=== PATIENT | female | born 1935 | race Caucasian/White ===

== ENCOUNTER 2019-09-18 18:01 | Inpatient (IN) | payer MEDICARE, MEDICAID ==
[~2019-09-18] VITALS: Ht 162.6 cm; Wt 107.1 kg
[~2019-09-18 18:01] MED LIST: ACET1TAB12 PO; ASCO500C15 PO; ASPI-1009 PO; CARV-50 PO; CHOL100046 PO; CYCL1DRO EACHEYE; DEXT15DR7 EACHEYE; DIPH25CA83 PO; FERR134T2 PO; FURO-149 PO; INSU100V12 SQ; MULT1TAB74 PO; PRED5TAB PO; VALS160T2 PO; VITA-129 PO
[2019-09-18 18:23] LABS: BASOPHILS % (AUTO) 0.3 % (0-1); EOSINOPHILS % (AUTO) 0.2 % (0-6); HEMATOCRIT 31.3 % (35.0-45.0); HEMOGLOBIN 10.3 g/dl (12.0-16.0); LYMPHOCYTES # (AUTO) 0.5 X10'3 (1.1-4.8); LYMPHOCYTES % (AUTO) 8.6 % (21-51); MEAN CORPUSCULAR HEMOGLOBIN 31.7 PG (27.0-31.0); MEAN CORPUSCULAR HGB CONC 32.8 g/dL (33.0-36.5); MEAN CORPUSCULAR VOLUME 96.8 FL (78-98); MONOCYTES # (AUTO) 0.2 X10'3 (0-0.9); MONOCYTES % (AUTO) 4.1 % (2-12); NEUTROPHILS # (AUTO) 4.9 X10'3 (1.8-7.7); NEUTROPHILS % (AUTO) 86.8 % (42-75); PLATELET COUNT 88 X10'3 (140-440); RED BLOOD COUNT 3.23 X10'6 (4.20-5.60); RED CELL DISTRIBUTION WIDTH 16.8 % (11.5-14.5); WHITE BLOOD COUNT 5.7 X10'3 (4.5-11.0)
[2019-09-18 18:34] LABS: PARTIAL THROMBOPLASTIN TIME 38 SECONDS (22-32)
[2019-09-18 18:37] LABS: ALANINE AMINOTRANSFERASE 25 U/L (12-78); ALBUMIN/GLOBULIN RATIO 0.8 (1.1-1.5); ALKALINE PHOSPHATASE 80 IU/L (46-116); ANION GAP 5 (8-16); ASPARTATE AMINO TRANSFERASE 42 U/L (10-37); BILIRUBIN,TOTAL 0.7 MG/DL (0.1-1.0); BLOOD UREA NITROGEN 48 MG/DL (7-18); BUN/CREATININE RATIO 24.4 (6.6-38.0); CALCIUM 9.5 MG/DL (8.5-10.1); CHLORIDE 95 MMOL/L (99-107); CREATININE 1.97 MG/DL (0.40-0.90); GLUCOSE 211 MG/DL (70-104); POTASSIUM 5.7 MMOL/L (3.5-5.1); SODIUM 133 MMOL/L (135-145); TOTAL CARBON DIOXIDE 32.7 MMOL/L (24-32); TOTAL PROTEIN 6.6 G/DL (6.4-8.2); eGFR 24 ML/MIN
[2019-09-18 18:51] LABS: PLATELET ESTIMATE DECREASED
[2019-09-18 18:52] LABS: LARGE PLATELETS FEW
[2019-09-18] MEDS ORDERED: calcium gluconate inj. 2 GM in normal saline 100ml IV soln 100 ML IV ONE (19:10)
[2019-09-18] MEDS ORDERED: sodium bicarbonate (0.9mEq/ml) 44.6 mEq/50ml syringe IV ONE (19:10)
[2019-09-18] MEDS ORDERED: insulin regular, human 10 units/0.1 ml syringe IV ONE (19:10)
[2019-09-18] MEDS ORDERED: dextrose 50%-water 50ml dispensing syringe IV ONE (19:10)
[2019-09-18 19:15] LABS: ABG BASE EXCESS 1.5 mmol/L (-2.0-3.0); ABG HCO3 27.5 mmol/L (22.0-26.0); ABG OXYGEN SATURATION 99.4 % (95-98); ABG PCO2 (T) 49.6 mmHg (35.0-45.0); ABG PH (T) 7.361 (7.350-7.450); ABG PO2 (T) 350.5 mmHg (83-108); ALLEN'S TEST Positive; FCOHb 0.1 % (0.5-1.5); FMetHb 0.1 % (0.3-1.12); FO2Hb 99.2 % (94-100); MINUTE VOLUME 7 L/min; PEEP 5 cm H2O; RESPIRATORY RATE 16 b/min; RESPIRATORY RATE (OBSERVED) 16 b/min; TIDAL VOLUME 400 mL; TOTAL HEMOGLOBIN 10.4 G/dl (12.0-16.0)
[2019-09-18] MEDS ORDERED: CefTRIAXone 2gm/D5W 50ml 50 ML IV ONE (19:40)
[2019-09-18] MEDS ORDERED: CISatracurium besylate inj. 200 MG in normal saline 250ml IV soln 180 ML IV PRN (20:12)
[2019-09-18] MEDS ORDERED: magnesium Cl slow-release 64mg tablet PO PRN (20:15)
[2019-09-18] MEDS ORDERED: magnesium 4gm in 100ml NS 100 ML IV PRN (20:15)
[2019-09-18] MEDS ORDERED: sodium phosphate inj. 30 MMOL in dextrose 5%-water 250 ML IV PRN (20:15)
[2019-09-18] MEDS ORDERED: potassium Cl 20 mEq SR tablet PO PRN ×2 (20:15)
[2019-09-18] MEDS ORDERED: CISatracurium **Bolus** 2 mg/ml inj IV PRN (20:15)
[2019-09-18] MEDS ORDERED: Neutra Phos packet PO PRN (20:15)
[2019-09-18] MEDS ORDERED: potassium CL 10mEq/100ml bag 100 ML IV PRN (20:15)
[2019-09-18] MEDS ORDERED: sodium phosphate inj. 15 MMOL in dextrose 5%-water 150 ML IV PRN (20:15)
[2019-09-18] MEDS ORDERED: magnesium 2GM in 50ml NS 50 ML IV PRN (20:15)
[2019-09-18] MEDS ORDERED: morphine 4 MG/ML inj SYRINge IV PRN (20:20)
[2019-09-18] MEDS ORDERED: acetaminophen 650mg rectal suppository RC PRN (20:20)
[2019-09-18] MEDS ORDERED: morphine 2 MG/ML inj. syringe IV PRN (20:20)
[2019-09-18] MEDS ORDERED: acetaminophen 325mg tablet PO PRN ×2 (20:20)
[2019-09-18] MEDS ORDERED: VANCOmycin 1250MG/NS 250ml Bag 250 ML IV SCH (20:30)
[2019-09-18 21:12] LABS: CLARITY,URINE CLOUDY (Clear); COLOR,URINE YELLOW (Yellow); GLUCOSE, URINE 250 mg/dl (Neg); KETONES,URINE NEGATIVE (Neg); LEUKOCYTE ESTERASE ,URINE SMALL (Neg); NITRITES, URINE NEGATIVE (Neg); OCCULT BLOOD,URINE LARGE (Neg); PROTEIN,URINE >=300 mg/dl (Neg); UROBILINOGEN,URINE 0.2 E.U/dL (0.2-1.0)
[2019-09-18 21:17] LABS: UA COLLECTION TYPE FOLEY CATH
[2019-09-18 21:19] LABS: RBC,URINE TNTC /HPF (0-2); SQUAMOUS EPITHELIAL CELL,UR MANY /LPF (FEW); WBC,URINE 0-4 /HPF (0-4)
[2019-09-18 21:20] LABS: BACTERIA,URINE FEW /HPF (Neg)
[2019-09-18 21:30] VITALS: BP_SYST 141; BP_SYST 147; BP_DIAS 116; BP_DIAS 91
[2019-09-18 22:00] VITALS: BP 136/91
[2019-09-18 22:15] LABS: ABG BASE EXCESS 6.4 mmol/L (-2.0-3.0); ABG HCO3 32.9 mmol/L (22.0-26.0); ABG OXYGEN SATURATION 99.3 % (95-98); ABG PCO2 (T) 47.7 mmHg (35.0-45.0); ABG PH (T) 7.438 (7.350-7.450); ABG PO2 (T) 185.2 mmHg (83-108); ALLEN'S TEST Positive; FCOHb 0.3 % (0.5-1.5); FMetHb 0.2 % (0.3-1.12); FO2Hb 98.8 % (94-100); MINUTE VOLUME 6 L/min; PATIENT TEMPERATURE 32.7; PEEP 5 cm H2O; RESPIRATORY RATE 16 b/min; RESPIRATORY RATE (OBSERVED) 17 b/min; TIDAL VOLUME 400 mL
[2019-09-18 22:15] LABS: OXYGEN SATURATION (MIXED VEN) 39.2 % (60-80); PO2 MIXED VENOUS (TEMP COR) 18.6 mmHg (35-46)
[2019-09-18 22:30] VITALS: BP 132/79
[2019-09-18] MEDS: FENTANYL-0.9 % NACL/PF 100 ML IV PRN (22:33)
[2019-09-18 23:00] VITALS: BP 115/67
--- NOTE | 2019-09-18 23:05 | NUR ---
I have received report and assumed car of pt from ER, pt placed on monitor, pt has augusto ulcers to the rt lower leg, abrasions to the chest, open areas under pannus, folds on her sides and under both breasts, photos obtained wound care consult made. pt does not arouse to verbal stimuli, she does flutter her eyes and startle jerk with deep painful stimuli, ABG and mixed augusto obtained, call placed to Deion Malone NP regarding low mixed augusto, new orders obtained to start low dose dobutamine and to recheck the mixed augusto with the morning abg. 0130 spoke to Deion Malone NP regarding pt's increase in rhythmic jerking and stiff upper arms, along with biting of the ett, pts eyes do flutter during these episodes, new orders received for the increase of versed and the use of versed bolus for seizure control.
[2019-09-18] MEDS: piperacillin/tazo 3.375gm/50ml 50 ML IV SCH (23:10)
[2019-09-18] MEDS: DOBUTamine-DoBUTrex 500mg/D5W 250 ML IV SCH (23:10)
[2019-09-18 23:30] VITALS: BP 119/65
[2019-09-19] VITALS (37 sets, daily range): BP systolic 102–134; BP diastolic 54–79
[2019-09-19] MEDS: midazolam 100mg in NS 100ml 100 ML IV PRN ×3 (01:45→22:42)
[2019-09-19 02:52] LABS: BASOPHILS % (AUTO) 0.1 % (0-1); EOSINOPHILS % (AUTO) 0 % (0-6); HEMATOCRIT 28.7 % (35.0-45.0); HEMOGLOBIN 9.5 g/dl (12.0-16.0); LYMPHOCYTES # (AUTO) 0.3 X10'3 (1.1-4.8); MEAN CORPUSCULAR HEMOGLOBIN 31.5 PG (27.0-31.0); MEAN CORPUSCULAR HGB CONC 33.1 g/dL (33.0-36.5); MEAN CORPUSCULAR VOLUME 95.2 FL (78-98); MEAN PLATELET VOLUME 8.7 FL (7.4-10.4); MONOCYTES # (AUTO) 0.8 X10'3 (0-0.9); MONOCYTES % (AUTO) 8.5 % (2-12); NEUTROPHILS # (AUTO) 7.9 X10'3 (1.8-7.7); NEUTROPHILS % (AUTO) 88.4 % (42-75); PLATELET COUNT 89 X10'3 (140-440); RED BLOOD COUNT 3.01 X10'6 (4.20-5.60); RED CELL DISTRIBUTION WIDTH 16.9 % (11.5-14.5)
[2019-09-19 03:00] LABS: PARTIAL THROMBOPLASTIN TIME 36 SECONDS (22-32)
[2019-09-19 03:01] LABS: ABG BASE EXCESS 7.3 mmol/L (-2.0-3.0); ABG HCO3 30.3 mmol/L (22.0-26.0); ABG OXYGEN SATURATION 99.6 % (95-98); ABG PCO2 (T) 30.1 mmHg (35.0-45.0); ABG PH (T) 7.606 (7.350-7.450); ABG PO2 (T) 264.8 mmHg (83-108); ALLEN'S TEST Positive; FCOHb 0.3 % (0.5-1.5); FMetHb 0.1 % (0.3-1.12); FO2Hb 99.2 % (94-100); MINUTE VOLUME 7 L/min; PATIENT TEMPERATURE 32.6; PEEP 5 cm H2O; RESPIRATORY RATE 16 b/min; RESPIRATORY RATE (OBSERVED) 16 b/min; TIDAL VOLUME 400 mL; TOTAL HEMOGLOBIN 10.4 G/dl (12.0-16.0)
[2019-09-19 03:05] LABS: OXYGEN SATURATION (MIXED VEN) 68.7 % (60-80); PO2 MIXED VENOUS (TEMP COR) 25.2 mmHg (35-46)
--- NOTE | 2019-09-19 03:05 | NUR ---
spoke to Senthil regarding pt having almost no urine output, new orders received for 40 mg IV lasix, pt has had family at bedside most of the evening, questions answered,
[2019-09-19 03:21] LABS: ALANINE AMINOTRANSFERASE 25 U/L (12-78); ALBUMIN 2.5 G/DL (3.4-5.0); ALBUMIN/GLOBULIN RATIO 0.8 (1.1-1.5); ALKALINE PHOSPHATASE 64 IU/L (46-116); ANION GAP 4 (8-16); ASPARTATE AMINO TRANSFERASE 43 U/L (10-37); BILIRUBIN,TOTAL 0.6 MG/DL (0.1-1.0); BLOOD UREA NITROGEN 49 MG/DL (7-18); BUN/CREATININE RATIO 25.7 (6.6-38.0); CALCIUM 9.4 MG/DL (8.5-10.1); CHLORIDE 99 MMOL/L (99-107); CKMB RELATIVE INDEX 7.3 RATIO (0-2.5); CREATINE KINASE 297 U/L (26-192); CREATININE 1.91 MG/DL (0.40-0.90); GLUCOSE 95 MG/DL (70-104); MAGNESIUM 1.9 MG/DL (1.5-2.4); PHOSPHORUS 3.2 MG/DL (2.3-4.5); SODIUM 138 MMOL/L (135-145); TOTAL CARBON DIOXIDE 35.4 MMOL/L (24-32); TOTAL PROTEIN 5.5 G/DL (6.4-8.2); TROPONIN I 0.09 NG/ML (0.0-0.05); eGFR 25 ML/MIN
[2019-09-19] MEDS ORDERED: furosemide 40mg/4ml inj IV ONE (04:00)
[2019-09-19] MEDS ORDERED: furosemide 40mg/4ml inj ONE (04:01)
[2019-09-19 04:08] LABS: ANISOCYTOSIS 1+; LARGE PLATELETS FEW; PLATELET ESTIMATE DECREASED; POLYCHROMASIA 1+; TOTAL CELLS COUNTED 100; TOXIC GRANULATION 1+
[2019-09-19 04:09] LABS: POIKILOCYTOSIS FEW
--- NOTE | 2019-09-19 06:25 | NUR ---
Report given to receiving RN plan of care reviewed
[2019-09-19] MEDS ORDERED: mineral oil/petrolatum ophthal oint EACHEYE PRN (07:10)
[2019-09-19] MEDS: pantoprazole 40 MG vial IV SCH (07:36)
[2019-09-19] MEDS: K, MAG and/or Phos replacement - Verify level? MC SCH (08:00)
[2019-09-19] MEDS: piperacillin/tazo 3.375gm/50ml 50 ML IV SCH ×2 (08:06→16:03)
[2019-09-19 08:20] LABS: ALBUMIN 2.5 G/DL (3.4-5.0); ANION GAP 6 (8-16); BLOOD UREA NITROGEN 49 MG/DL (7-18); BUN/CREATININE RATIO 26.1 (6.6-38.0); CALCIUM 9.4 MG/DL (8.5-10.1); CHLORIDE 99 MMOL/L (99-107); CREATININE 1.88 MG/DL (0.40-0.90); GLUCOSE 86 MG/DL (70-104); MAGNESIUM 1.7 MG/DL (1.5-2.4); POTASSIUM 3.5 MMOL/L (3.5-5.1); SODIUM 139 MMOL/L (135-145); TOTAL CARBON DIOXIDE 34.1 MMOL/L (24-32); eGFR 25 ML/MIN
[2019-09-19 09:55] LABS: PO2 MIXED VENOUS (TEMP COR) 28.6 mmHg (35-46)
[2019-09-19 10:10] LABS: ABG BASE EXCESS 5.8 mmol/L (-2.0-3.0); ABG HCO3 29.2 mmol/L (22.0-26.0); ABG OXYGEN SATURATION 91.3 % (95-98); ABG PCO2 (T) 37.9 mmHg (35.0-45.0); ABG PH (T) 7.505 (7.350-7.450); ABG PO2 (T) 59.9 mmHg (83-108); ALLEN'S TEST Positive; FCOHb 0.2 % (0.5-1.5); FMetHb 0.1 % (0.3-1.12); PEEP 5 cm H2O; RESPIRATORY RATE 12 b/min; TIDAL VOLUME 400 mL; TOTAL HEMOGLOBIN 10.5 G/dl (12.0-16.0)
[2019-09-19] MEDS: FENTANYL-0.9 % NACL/PF 100 ML IV PRN ×2 (10:50→22:43)
[2019-09-19] MEDS ORDERED: dextrose 50%-water 50ml dispensing syringe IV PRN (12:35)
[2019-09-19] MEDS ORDERED: dextrose ORAL solution 15 GM/59 ML bottle PO PRN ×2 (12:35)
[2019-09-19] MEDS ORDERED: insulin Lispro (HumaLOG) vial - multi-dose SQ SCH (12:35)
[2019-09-19] MEDS ORDERED: MESSAGE TO PHARMACY PO ONE (12:35)
[2019-09-19] MEDS ORDERED: glucagon, human recombinant 1mg kit SUBCUT PRN (12:35)
[2019-09-19] MEDS ORDERED: dextrose 50%-water 50ml dispensing syringe IV ONE (12:42)
[2019-09-19] MEDS: dextrose 50%-water 50ml dispensing syringe IV PRN (12:43)
[2019-09-19] MEDS: mineral oil/petrolatum ophthal oint EACHEYE SCH ×3 (12:57→20:37)
--- NOTE | 2019-09-19 13:00 | NUR ---
Wound care called, spoke to RN, asked to come and assess and recommend treatment for multiple affected areas.
[2019-09-19 13:14] LABS: ALBUMIN 2.3 G/DL (3.4-5.0); ANION GAP 6 (8-16); BLOOD UREA NITROGEN 47 MG/DL (7-18); BUN/CREATININE RATIO 25.5 (6.6-38.0); CALCIUM 9.5 MG/DL (8.5-10.1); CHLORIDE 99 MMOL/L (99-107); CKMB RELATIVE INDEX 8.5 RATIO (0-2.5); CREATINE KINASE 215 U/L (26-192); CREATININE 1.84 MG/DL (0.40-0.90); GLUCOSE 68 MG/DL (70-104); MAGNESIUM 1.8 MG/DL (1.5-2.4); POTASSIUM 3.4 MMOL/L (3.5-5.1); SODIUM 139 MMOL/L (135-145); TOTAL CARBON DIOXIDE 34.3 MMOL/L (24-32); TROPONIN I 0.11 NG/ML (0.0-0.05); eGFR 26 ML/MIN
[2019-09-19] MEDS: potassium CL 10mEq/100ml bag 100 ML IV PRN ×2 (13:29→14:22)
--- NOTE | 2019-09-19 14:56 | NUR ---
Initial: Pt admit after cardiac arrest requiring intubation. No TF at this time as pt currently on hypothermic protocol. TF recommendations below using patient's IBW as current wt isn't scaled, however a scaled weight would be appropriate to best determine the patient's estimated nutrient needs. Pt with hx T2DM, current A1c is 7.4. Pt would benefit from DM education following extubation once stable. Pt with low Deuce of 10, skin intact per physical assessment. Will continue to follow. Recommendations: 1) If prolonged intubation and to receive TF, recommend continuous TF using Vital High Protein with goal rate of 55 mL/hr 2) If above, Prealbumin q M/TH; daily weights 3) Scaled weight for accuracy 4) PO diet advancement to heart healthy CHO controlled after extubation as medically indicated Addendum: 09/19/19 at [address] Amended: Links added.
--- NOTE | 2019-09-19 14:59 | NUR ---
Patient in room CICU 2010. I have received report from BJ material handler 2nd shift nurse and had the opportunity to ask questions and assume patient care.
[2019-09-19 15:30] LABS: OXYGEN SATURATION (MIXED VEN) 65.9 % (60-80); PO2 MIXED VENOUS (TEMP COR) 33.9 mmHg (35-46)
[2019-09-19] MEDS: potassium Cl 20mEq/100mL bag 100 ML IV PRN (16:03)
[2019-09-19 17:15] LABS: ABG BASE EXCESS 7.4 mmol/L (-2.0-3.0); ABG HCO3 30.9 mmol/L (22.0-26.0); ABG PCO2 (T) 32.5 mmHg (35.0-45.0); ABG PO2 (T) 59.4 mmHg (83-108); FCOHb 0.1 % (0.5-1.5); FMetHb 0.1 % (0.3-1.12); FO2Hb 95.8 % (94-100); MINUTE VOLUME 4 L/min; PATIENT TEMPERATURE 32.7; PEEP 5 cm H2O; RESPIRATORY RATE 12 b/min; RESPIRATORY RATE (OBSERVED) 12 b/min; TIDAL VOLUME 350 mL; TOTAL HEMOGLOBIN 10.1 G/dl (12.0-16.0)
[2019-09-19] MEDS ORDERED: normal saline 1000ml 1,000 ML IV SCH (17:30)
--- NOTE | 2019-09-19 17:36 | NUR ---
dr garvin updated on abg results, new orders for vent rate of 8, updated on urine output dropping over last couple of hours, and low blood sugar x1.
--- NOTE | 2019-09-19 18:31 | NUR ---
Problems reprioritized. Patient report given, questions answered & plan of care reviewed with Jose Miguel operation shift supervisor RN.
--- NOTE | 2019-09-19 18:35 | NUR ---
Patient in room CICU 2010. I have received report from Nataliya mondragon and had the opportunity to ask questions and assume patient care.
[2019-09-19] MEDS: lactobacillus rhamnosus 10,000 MMU CELLS/CAPSULE PO SCH (20:37)
[2019-09-19] MEDS: insulin glargine (Lantus) pen - multi-dose SQ SCH (20:37)
[2019-09-19 20:50] LABS: ALANINE AMINOTRANSFERASE 27 U/L (12-78); ALBUMIN 2.2 G/DL (3.4-5.0); ALBUMIN/GLOBULIN RATIO 0.8 (1.1-1.5); ALKALINE PHOSPHATASE 56 IU/L (46-116); ANION GAP 0 (8-16); ASPARTATE AMINO TRANSFERASE 45 U/L (10-37); BILIRUBIN,TOTAL 0.8 MG/DL (0.1-1.0); BLOOD UREA NITROGEN 49 MG/DL (7-18); CALCIUM 9.2 MG/DL (8.5-10.1); CHLORIDE 99 MMOL/L (99-107); CKMB RELATIVE INDEX 9.2 RATIO (0-2.5); CREATINE KINASE 169 U/L (26-192); CREATININE 1.96 MG/DL (0.40-0.90); GLUCOSE 85 MG/DL (70-104); MAGNESIUM 1.7 MG/DL (1.5-2.4); PHOSPHORUS 3.2 MG/DL (2.3-4.5); POTASSIUM 4.3 MMOL/L (3.5-5.1); SODIUM 137 MMOL/L (135-145); TOTAL CARBON DIOXIDE 37.8 MMOL/L (24-32); TOTAL PROTEIN 4.9 G/DL (6.4-8.2); TROPONIN I 0.13 NG/ML (0.0-0.05); eGFR 24 ML/MIN
[2019-09-19 20:58] LABS: BASOPHILS % (AUTO) 0.1 % (0-1); EOSINOPHILS % (AUTO) 0.1 % (0-6); HEMATOCRIT 27.9 % (35.0-45.0); HEMOGLOBIN 9.4 g/dl (12.0-16.0); LYMPHOCYTES # (AUTO) 0.3 X10'3 (1.1-4.8); LYMPHOCYTES % (AUTO) 3.9 % (21-51); MEAN CORPUSCULAR HEMOGLOBIN 31.9 PG (27.0-31.0); MEAN CORPUSCULAR HGB CONC 33.7 g/dL (33.0-36.5); MEAN CORPUSCULAR VOLUME 94.6 FL (78-98); MEAN PLATELET VOLUME 9.7 FL (7.4-10.4); MONOCYTES # (AUTO) 0.4 X10'3 (0-0.9); MONOCYTES % (AUTO) 5.2 % (2-12); NEUTROPHILS # (AUTO) 6.8 X10'3 (1.8-7.7); NEUTROPHILS % (AUTO) 90.7 % (42-75); PLATELET COUNT 85 X10'3 (140-440); RED BLOOD COUNT 2.95 X10'6 (4.20-5.60); RED CELL DISTRIBUTION WIDTH 16.3 % (11.5-14.5); WHITE BLOOD COUNT 7.5 X10'3 (4.5-11.0)
--- NOTE | 2019-09-19 21:00 | NUR ---
pt bathed. Artic sun in place. unable to obtain an accurate weight at this time
[2019-09-19 21:25] LABS: ABG HCO3 32.5 mmol/L (22.0-26.0); ALLEN'S TEST Positive; MINUTE VOLUME 3 L/min; PATIENT TEMPERATURE 32.9; PEEP 5 cm H2O; RESPIRATORY RATE 8 b/min; RESPIRATORY RATE (OBSERVED) 8 b/min; TIDAL VOLUME 350 mL
[2019-09-19 21:26] LABS: ABG BASE EXCESS 6.9 mmol/L (-2.0-3.0); ABG OXYGEN SATURATION 95.1 % (95-98); FCOHb 0.3 % (0.5-1.5); FMetHb 0.2 % (0.3-1.12); FO2Hb 94.6 % (94-100); TOTAL HEMOGLOBIN 10.6 G/dl (12.0-16.0)
--- NOTE | 2019-09-19 22:24 | NUR ---
rewarming initiated per protocol. vital signs stable at this time. will continue to monitor
[2019-09-19] MEDS: VANCOmycin 1250MG/NS 250ml Bag 250 ML IV SCH (23:17)
[2019-09-20] VITALS (24 sets, daily range): BP systolic 91–136; BP diastolic 45–71
[2019-09-20] MEDS: mineral oil/petrolatum ophthal oint EACHEYE SCH ×7 (00:51→23:56)
[2019-09-20] MEDS: piperacillin/tazo 3.375gm/50ml 50 ML IV SCH ×4 (00:52→23:56)
[2019-09-20 02:37] LABS: BASOPHILS % (AUTO) 0.1 % (0-1); EOSINOPHILS % (AUTO) 0 % (0-6); HEMATOCRIT 28.7 % (35.0-45.0); HEMOGLOBIN 9.7 g/dl (12.0-16.0); LYMPHOCYTES # (AUTO) 0.3 X10'3 (1.1-4.8); LYMPHOCYTES % (AUTO) 4.4 % (21-51); MEAN CORPUSCULAR HEMOGLOBIN 31.9 PG (27.0-31.0); MEAN CORPUSCULAR HGB CONC 33.8 g/dL (33.0-36.5); MEAN CORPUSCULAR VOLUME 94.5 FL (78-98); MEAN PLATELET VOLUME 9.4 FL (7.4-10.4); MONOCYTES # (AUTO) 0.4 X10'3 (0-0.9); MONOCYTES % (AUTO) 5.4 % (2-12); NEUTROPHILS % (AUTO) 90.1 % (42-75); PLATELET COUNT 85 X10'3 (140-440); RED BLOOD COUNT 3.03 X10'6 (4.20-5.60); RED CELL DISTRIBUTION WIDTH 16.5 % (11.5-14.5); WHITE BLOOD COUNT 7.8 X10'3 (4.5-11.0)
[2019-09-20 02:47] LABS: PARTIAL THROMBOPLASTIN TIME 39 SECONDS (22-32)
[2019-09-20 03:00] LABS: ABG BASE EXCESS 6.1 mmol/L (-2.0-3.0); ABG HCO3 32.1 mmol/L (22.0-26.0); ABG OXYGEN SATURATION 94.9 % (95-98); ABG PCO2 (T) 46.7 mmHg (35.0-45.0); ABG PH (T) 7.442 (7.350-7.450); ABG PO2 (T) 63.6 mmHg (83-108); ALLEN'S TEST Positive; FCOHb 0.7 % (0.5-1.5); FMetHb 0.2 % (0.3-1.12); MINUTE VOLUME 3 L/min; PATIENT TEMPERATURE 33.8; PEEP 5 cm H2O; RESPIRATORY RATE 8 b/min; RESPIRATORY RATE (OBSERVED) 8 b/min; TIDAL VOLUME 350 mL; TOTAL HEMOGLOBIN 10.7 G/dl (12.0-16.0)
[2019-09-20 03:10] LABS: ALANINE AMINOTRANSFERASE 24 U/L (12-78); ALBUMIN 2.1 G/DL (3.4-5.0); ALBUMIN/GLOBULIN RATIO 0.8 (1.1-1.5); ALKALINE PHOSPHATASE 53 IU/L (46-116); ANION GAP 3 (8-16); ASPARTATE AMINO TRANSFERASE 44 U/L (10-37); BILIRUBIN,TOTAL 0.7 MG/DL (0.1-1.0); BLOOD UREA NITROGEN 51 MG/DL (7-18); BUN/CREATININE RATIO 25.1 (6.6-38.0); CHLORIDE 100 MMOL/L (99-107); CKMB RELATIVE INDEX 9.4 RATIO (0-2.5); CREATINE KINASE 138 U/L (26-192); CREATININE 2.03 MG/DL (0.40-0.90); GLUCOSE 93 MG/DL (70-104); MAGNESIUM 1.7 MG/DL (1.5-2.4); PHOSPHORUS 3.6 MG/DL (2.3-4.5); POTASSIUM 4.6 MMOL/L (3.5-5.1); SODIUM 137 MMOL/L (135-145); TOTAL PROTEIN 4.8 G/DL (6.4-8.2); TROPONIN I 0.14 NG/ML (0.0-0.05); eGFR 23 ML/MIN
[2019-09-20 04:08] LABS: ANISOCYTOSIS 1+; PLATELET ESTIMATE DECREASED; POIKILOCYTOSIS 1+; TOTAL CELLS COUNTED 100
[2019-09-20 04:09] LABS: TOXIC GRANULATION 2+
[2019-09-20 04:10] LABS: BURR CELLS 1+; POLYCHROMASIA 1+
--- NOTE | 2019-09-20 06:50 | NUR ---
Patient in room CICU 2010. I have received report from LA Miller and had the opportunity to ask questions and assume patient care.
[2019-09-20] MEDS: DOBUTamine-DoBUTrex 500mg/D5W 250 ML IV SCH (07:17)
[2019-09-20] MEDS: lactobacillus rhamnosus 10,000 MMU CELLS/CAPSULE PO SCH ×2 (07:18→19:27)
[2019-09-20] MEDS: pantoprazole 40 MG vial IV SCH (07:18)
[2019-09-20] MEDS: FENTANYL-0.9 % NACL/PF 100 ML IV PRN (07:18)
[2019-09-20] MEDS: NORepinephrine 8mg/ 250ml NS 250 ML IV SCH (07:28)
[2019-09-20] MEDS: K, MAG and/or Phos replacement - Verify level? MC SCH (08:00)
[2019-09-20 08:26] LABS: ALBUMIN 2.4 G/DL (3.4-5.0); ANION GAP 4 (8-16); BLOOD UREA NITROGEN 52 MG/DL (7-18); BUN/CREATININE RATIO 24.9 (6.6-38.0); CALCIUM 8.9 MG/DL (8.5-10.1); CHLORIDE 98 MMOL/L (99-107); CREATININE 2.09 MG/DL (0.40-0.90); GLUCOSE 110 MG/DL (70-104); MAGNESIUM 1.8 MG/DL (1.5-2.4); POTASSIUM 4.8 MMOL/L (3.5-5.1); SODIUM 137 MMOL/L (135-145); TOTAL CARBON DIOXIDE 34.7 MMOL/L (24-32); eGFR 23 ML/MIN
[2019-09-20 08:35] LABS: ABG BASE EXCESS 5.7 mmol/L (-2.0-3.0); ABG HCO3 32.9 mmol/L (22.0-26.0); ABG OXYGEN SATURATION 92.6 % (95-98); ABG PCO2 (T) 58.4 mmHg (35.0-45.0); ABG PH (T) 7.362 (7.350-7.450); ABG PO2 (T) 64.9 mmHg (83-108); ALLEN'S TEST Positive; FCOHb 0.8 % (0.5-1.5); FMetHb 0.3 % (0.3-1.12); FO2Hb 91.6 % (94-100); PATIENT TEMPERATURE 35.8; PEEP 5 cm H2O; RESPIRATORY RATE 8 b/min; TOTAL HEMOGLOBIN 11.4 G/dl (12.0-16.0)
[2019-09-20] MEDS: ipratropium/albuterol 3ml nebule NEB PRN ×3 (09:49→23:16)
[2019-09-20] MEDS: normal saline 1000ml 1,000 ML IV SCH ×2 (12:02→21:05)
[2019-09-20 12:36] LABS: CKMB RELATIVE INDEX 7.7 RATIO (0-2.5); TROPONIN I 0.13 NG/ML (0.0-0.05)
[2019-09-20 13:40] LABS: ABG BASE EXCESS 5.2 mmol/L (-2.0-3.0); ABG HCO3 31.4 mmol/L (22.0-26.0); ABG OXYGEN SATURATION 93.7 % (95-98); ABG PCO2 (T) 53.2 mmHg (35.0-45.0); ABG PH (T) 7.388 (7.350-7.450); ABG PO2 (T) 69.6 mmHg (83-108); ALLEN'S TEST Positive; FCOHb 0.7 % (0.5-1.5); FMetHb 0.2 % (0.3-1.12); FO2Hb 92.9 % (94-100); PATIENT TEMPERATURE 36.8; PEEP 5 cm H2O; RESPIRATORY RATE 10 b/min; RESPIRATORY RATE (OBSERVED) 10 b/min; TIDAL VOLUME 350 mL; TOTAL HEMOGLOBIN 11.5 G/dl (12.0-16.0)
[2019-09-20 14:31] LABS: ALBUMIN 2.4 G/DL (3.4-5.0); ANION GAP 3 (8-16); BLOOD UREA NITROGEN 51 MG/DL (7-18); BUN/CREATININE RATIO 22.2 (6.6-38.0); CALCIUM 8.8 MG/DL (8.5-10.1); CHLORIDE 98 MMOL/L (99-107); GLUCOSE 126 MG/DL (70-104); MAGNESIUM 1.8 MG/DL (1.5-2.4); POTASSIUM 4.9 MMOL/L (3.5-5.1); SODIUM 137 MMOL/L (135-145); TOTAL CARBON DIOXIDE 35.8 MMOL/L (24-32); eGFR 20 ML/MIN
--- NOTE | 2019-09-20 18:02 | NUR ---
Problems reprioritized. Patient report given, questions answered & plan of care reviewed with LA Miller.
--- NOTE | 2019-09-20 18:15 | NUR ---
Patient in room CICU 2010. I have received report from nicholas mondragon and had the opportunity to ask questions and assume patient care.
[2019-09-20] MEDS: NYSTATIN CREAM - 30GM TUBE TP SCH (19:27)
[2019-09-20] MEDS: insulin glargine (Lantus) pen - multi-dose SQ SCH (19:38)
--- NOTE | 2019-09-20 20:04 | NUR ---
preformed pericare on pt and vaginal bleeding with clots was present. md aware. no change in orders or new orders at this time
[2019-09-20 20:06] LABS: ALBUMIN 2.3 G/DL (3.4-5.0); ANION GAP 5 (8-16); BASOPHILS % (AUTO) 0.3 % (0-1); BLOOD UREA NITROGEN 53 MG/DL (7-18); BUN/CREATININE RATIO 20.9 (6.6-38.0); CALCIUM 8.9 MG/DL (8.5-10.1); CHLORIDE 98 MMOL/L (99-107); CREATININE 2.53 MG/DL (0.40-0.90); EOSINOPHILS # (AUTO) 0.1 X10'3 (0-0.9); EOSINOPHILS % (AUTO) 0.7 % (0-6); GLUCOSE 132 MG/DL (70-104); HEMATOCRIT 30.5 % (35.0-45.0); HEMOGLOBIN 10.1 g/dl (12.0-16.0); LYMPHOCYTES # (AUTO) 0.6 X10'3 (1.1-4.8); LYMPHOCYTES % (AUTO) 6.4 % (21-51); MAGNESIUM 1.8 MG/DL (1.5-2.4); MEAN CORPUSCULAR HEMOGLOBIN 31.6 PG (27.0-31.0); MEAN CORPUSCULAR HGB CONC 33.2 g/dL (33.0-36.5); MEAN CORPUSCULAR VOLUME 95.3 FL (78-98); MEAN PLATELET VOLUME 9.1 FL (7.4-10.4); MONOCYTES # (AUTO) 0.6 X10'3 (0-0.9); MONOCYTES % (AUTO) 6.6 % (2-12); NEUTROPHILS # (AUTO) 8.3 X10'3 (1.8-7.7); PLATELET COUNT 98 X10'3 (140-440); POTASSIUM 4.9 MMOL/L (3.5-5.1); SODIUM 136 MMOL/L (135-145); TOTAL CARBON DIOXIDE 32.8 MMOL/L (24-32); WHITE BLOOD COUNT 9.7 X10'3 (4.5-11.0); eGFR 18 ML/MIN
[2019-09-20] MEDS: VANCOmycin 1250MG/NS 250ml Bag 250 ML IV SCH (22:04)
[2019-09-21] VITALS (24 sets, daily range): BP systolic 97–123; BP diastolic 47–60
[2019-09-21 02:27] LABS: BASOPHILS % (AUTO) 0.2 % (0-1); EOSINOPHILS # (AUTO) 0.1 X10'3 (0-0.9); EOSINOPHILS % (AUTO) 1.1 % (0-6); HEMATOCRIT 29.5 % (35.0-45.0); HEMOGLOBIN 9.8 g/dl (12.0-16.0); LYMPHOCYTES # (AUTO) 0.6 X10'3 (1.1-4.8); LYMPHOCYTES % (AUTO) 6.1 % (21-51); MEAN CORPUSCULAR HEMOGLOBIN 31.8 PG (27.0-31.0); MEAN CORPUSCULAR HGB CONC 33.4 g/dL (33.0-36.5); MEAN CORPUSCULAR VOLUME 95.3 FL (78-98); MEAN PLATELET VOLUME 8.9 FL (7.4-10.4); MONOCYTES # (AUTO) 0.6 X10'3 (0-0.9); MONOCYTES % (AUTO) 6.6 % (2-12); NEUTROPHILS # (AUTO) 7.8 X10'3 (1.8-7.7); PLATELET COUNT 105 X10'3 (140-440); RED BLOOD COUNT 3.09 X10'6 (4.20-5.60); RED CELL DISTRIBUTION WIDTH 17.4 % (11.5-14.5)
[2019-09-21 02:35] LABS: PARTIAL THROMBOPLASTIN TIME 35 SECONDS (22-32)
[2019-09-21] MEDS: ipratropium/albuterol 3ml nebule NEB PRN (02:48)
[2019-09-21 02:51] LABS: ALANINE AMINOTRANSFERASE 34 U/L (12-78); ALBUMIN 2.3 G/DL (3.4-5.0); ALBUMIN/GLOBULIN RATIO 0.7 (1.1-1.5); ALKALINE PHOSPHATASE 54 IU/L (46-116); ANION GAP 7 (8-16); ASPARTATE AMINO TRANSFERASE 48 U/L (10-37); BILIRUBIN,TOTAL 0.8 MG/DL (0.1-1.0); BLOOD UREA NITROGEN 53 MG/DL (7-18); BUN/CREATININE RATIO 20.5 (6.6-38.0); CALCIUM 8.9 MG/DL (8.5-10.1); CHLORIDE 99 MMOL/L (99-107); CREATININE 2.58 MG/DL (0.40-0.90); GLUCOSE 138 MG/DL (70-104); MAGNESIUM 1.9 MG/DL (1.5-2.4); PHOSPHORUS 4.2 MG/DL (2.3-4.5); POTASSIUM 4.8 MMOL/L (3.5-5.1); SODIUM 137 MMOL/L (135-145); TOTAL CARBON DIOXIDE 30.8 MMOL/L (24-32); TOTAL PROTEIN 5.4 G/DL (6.4-8.2); eGFR 18 ML/MIN
[2019-09-21 03:06] LABS: ABG BASE EXCESS 3.4 mmol/L (-2.0-3.0); ABG HCO3 29.4 mmol/L (22.0-26.0); ABG OXYGEN SATURATION 93.8 % (95-98); ABG PCO2 (T) 50.9 mmHg (35.0-45.0); ABG PH (T) 7.379 (7.350-7.450); ABG PO2 (T) 71.7 mmHg (83-108); ALLEN'S TEST Positive; FCOHb 0.5 % (0.5-1.5); FMetHb 0.2 % (0.3-1.12); FO2Hb 93.1 % (94-100); MINUTE VOLUME 4 L/min; PATIENT TEMPERATURE 36.8; PEEP 5 cm H2O; RESPIRATORY RATE 10 b/min; RESPIRATORY RATE (OBSERVED) 10 b/min; TIDAL VOLUME 350 mL
[2019-09-21] MEDS: NORepinephrine 8mg/ 250ml NS 250 ML IV SCH (03:56)
[2019-09-21] MEDS: mineral oil/petrolatum ophthal oint EACHEYE SCH ×5 (03:56→19:41)
[2019-09-21] MEDS: normal saline 1000ml 1,000 ML IV SCH ×2 (07:32→17:19)
[2019-09-21] MEDS: lactobacillus rhamnosus 10,000 MMU CELLS/CAPSULE PO SCH ×2 (07:32→19:41)
[2019-09-21] MEDS: piperacillin/tazo 3.375gm/50ml 50 ML IV SCH ×2 (07:32→19:41)
[2019-09-21] MEDS: pantoprazole 40 MG vial IV SCH (07:32)
[2019-09-21] MEDS: NYSTATIN CREAM - 30GM TUBE TP SCH ×2 (07:33→19:41)
[2019-09-21] MEDS: K, MAG and/or Phos replacement - Verify level? MC SCH (07:42)
[2019-09-21 08:26] LABS: ALBUMIN 2.4 G/DL (3.4-5.0); ANION GAP 7 (8-16); BLOOD UREA NITROGEN 56 MG/DL (7-18); BUN/CREATININE RATIO 20.6 (6.6-38.0); CALCIUM 8.7 MG/DL (8.5-10.1); CHLORIDE 99 MMOL/L (99-107); CREATININE 2.72 MG/DL (0.40-0.90); GLUCOSE 147 MG/DL (70-104); MAGNESIUM 1.8 MG/DL (1.5-2.4); POTASSIUM 4.9 MMOL/L (3.5-5.1); SODIUM 139 MMOL/L (135-145); TOTAL CARBON DIOXIDE 32.6 MMOL/L (24-32); eGFR 17 ML/MIN
--- NOTE | 2019-09-21 11:26 | NUR ---
Bedside rounds completed with MD Martel, scrap charger, nursing, social insurance administrator, and pharmacy in attendance. MD made awas Addendum: 09/21/[address]jo RN Md made aware of current vitals, neuro status, urine output trends. also made aware of current infusion of norepi and dobutamine drips. Per , D/C dobutamine drip. Md to assess neuro status later this shift. Per , also ok to stop Q6 lab and abg orders at this time.
[2019-09-21 15:35] LABS: ABG BASE EXCESS 3.2 mmol/L (-2.0-3.0); ABG HCO3 27.9 mmol/L (22.0-26.0); ABG OXYGEN SATURATION 95.2 % (95-98); ABG PCO2 (T) 42.6 mmHg (35.0-45.0); ABG PH (T) 7.432 (7.350-7.450); ABG PO2 (T) 73.4 mmHg (83-108); ALLEN'S TEST Positive; FCOHb 0.3 % (0.5-1.5); FMetHb 0.2 % (0.3-1.12); FO2Hb 94.7 % (94-100); PATIENT TEMPERATURE 36.7; PEEP 5 cm H2O; RESPIRATORY RATE 16 b/min; RESPIRATORY RATE (OBSERVED) 16 b/min; TIDAL VOLUME 350 mL; TOTAL HEMOGLOBIN 10.3 G/dl (12.0-16.0)
[2019-09-21 16:05] LABS: ABG BASE EXCESS 2.7 mmol/L (-2.0-3.0); ABG HCO3 30.8 mmol/L (22.0-26.0); ABG PO2 (T) 79.2 mmHg (83-108); ALLEN'S TEST Positive; FCOHb 0.3 % (0.5-1.5); FLOW 10 L/min; FMetHb 0.2 % (0.3-1.12); FO2Hb 93.5 % (94-100); TOTAL HEMOGLOBIN 10.7 G/dl (12.0-16.0)
--- NOTE | 2019-09-21 18:20 | NUR ---
Patient in room ICU 2046. I have received report and had the opportunity to ask questions and assume patient care.
--- NOTE | 2019-09-21 19:00 | NUR ---
technology applications teacher present at bedside
[2019-09-21] MEDS: insulin glargine (Lantus) pen - multi-dose SQ SCH (19:51)
[2019-09-21 21:26] LABS: ABG BASE EXCESS 1.1 mmol/L (-2.0-3.0); ABG HCO3 26.4 mmol/L (22.0-26.0); ABG OXYGEN SATURATION 86.7 % (95-98); ABG PCO2 (T) 43.8 mmHg (35.0-45.0); ABG PH (T) 7.395 (7.350-7.450); ABG PO2 (T) 49.4 mmHg (83-108); ALLEN'S TEST Positive; FCOHb 0.3 % (0.5-1.5); FMetHb 0.1 % (0.3-1.12); FO2Hb 86.4 % (94-100); MINUTE VOLUME 4 L/min; PATIENT TEMPERATURE 36.2; PEEP 5 cm H2O; RESPIRATORY RATE 11 b/min; RESPIRATORY RATE (OBSERVED) 11 b/min; TIDAL VOLUME 350 mL; TOTAL HEMOGLOBIN 10.5 G/dl (12.0-16.0)
[2019-09-21 22:17] LABS: BASOPHILS % (AUTO) 0.4 % (0-1); EOSINOPHILS # (AUTO) 0.1 X10'3 (0-0.9); EOSINOPHILS % (AUTO) 0.8 % (0-6); HEMATOCRIT 28.2 % (35.0-45.0); HEMOGLOBIN 9.4 g/dl (12.0-16.0); LYMPHOCYTES # (AUTO) 0.5 X10'3 (1.1-4.8); LYMPHOCYTES % (AUTO) 6.9 % (21-51); MEAN CORPUSCULAR HEMOGLOBIN 31.5 PG (27.0-31.0); MEAN CORPUSCULAR HGB CONC 33.3 g/dL (33.0-36.5); MEAN CORPUSCULAR VOLUME 94.6 FL (78-98); MEAN PLATELET VOLUME 8.8 FL (7.4-10.4); MONOCYTES # (AUTO) 0.4 X10'3 (0-0.9); MONOCYTES % (AUTO) 5.5 % (2-12); NEUTROPHILS % (AUTO) 86.4 % (42-75); PLATELET COUNT 88 X10'3 (140-440); RED BLOOD COUNT 2.98 X10'6 (4.20-5.60); RED CELL DISTRIBUTION WIDTH 17.1 % (11.5-14.5)
[2019-09-21 22:20] LABS: ALBUMIN 2.2 G/DL (3.4-5.0); ANION GAP 10 (8-16); BLOOD UREA NITROGEN 57 MG/DL (7-18); BUN/CREATININE RATIO 19.1 (6.6-38.0); CALCIUM 8.5 MG/DL (8.5-10.1); CHLORIDE 99 MMOL/L (99-107); CREATININE 2.99 MG/DL (0.40-0.90); GLUCOSE 164 MG/DL (70-104); MAGNESIUM 1.8 MG/DL (1.5-2.4); POTASSIUM 4.8 MMOL/L (3.5-5.1); SODIUM 139 MMOL/L (135-145); TOTAL CARBON DIOXIDE 30.1 MMOL/L (24-32); eGFR 15 ML/MIN
[2019-09-21 22:21] LABS: VANCOMYCIN,TROUGH 27.5 UG/ML (6.0-14.0)
[2019-09-21] MEDS ORDERED: VANCOMYCIN LEVEL IV ONE (22:30)
[2019-09-22] VITALS (23 sets, daily range): BP systolic 108–134; BP diastolic 47–68
[2019-09-22] MEDS: mineral oil/petrolatum ophthal oint EACHEYE SCH ×6 (00:50→20:00)
[2019-09-22 02:40] LABS: ABG BASE EXCESS 1.4 mmol/L (-2.0-3.0); ABG OXYGEN SATURATION 97.7 % (95-98); ABG PCO2 (T) 46.3 mmHg (35.0-45.0); ABG PH (T) 7.382 (7.350-7.450); ABG PO2 (T) 104.6 mmHg (83-108); ALLEN'S TEST Positive; FCOHb 0.3 % (0.5-1.5); FMetHb 0.3 % (0.3-1.12); FO2Hb 97.1 % (94-100); MINUTE VOLUME 4 L/min; PATIENT TEMPERATURE 36.4; PEEP 5 cm H2O; RESPIRATORY RATE 11 b/min; RESPIRATORY RATE (OBSERVED) 11 b/min; TIDAL VOLUME 350 mL; TOTAL HEMOGLOBIN 10.2 G/dl (12.0-16.0)
[2019-09-22 02:56] LABS: BASOPHILS % (AUTO) 0.4 % (0-1); EOSINOPHILS # (AUTO) 0.1 X10'3 (0-0.9); EOSINOPHILS % (AUTO) 1.1 % (0-6); HEMATOCRIT 27.7 % (35.0-45.0); HEMOGLOBIN 9.3 g/dl (12.0-16.0); LYMPHOCYTES # (AUTO) 0.5 X10'3 (1.1-4.8); LYMPHOCYTES % (AUTO) 7.6 % (21-51); MEAN CORPUSCULAR HEMOGLOBIN 31.8 PG (27.0-31.0); MEAN CORPUSCULAR HGB CONC 33.6 g/dL (33.0-36.5); MEAN CORPUSCULAR VOLUME 94.8 FL (78-98); MEAN PLATELET VOLUME 8.5 FL (7.4-10.4); MONOCYTES # (AUTO) 0.4 X10'3 (0-0.9); MONOCYTES % (AUTO) 6.3 % (2-12); NEUTROPHILS # (AUTO) 5.3 X10'3 (1.8-7.7); NEUTROPHILS % (AUTO) 84.6 % (42-75); PLATELET COUNT 83 X10'3 (140-440); RED BLOOD COUNT 2.92 X10'6 (4.20-5.60); RED CELL DISTRIBUTION WIDTH 17.7 % (11.5-14.5); WHITE BLOOD COUNT 6.2 X10'3 (4.5-11.0)
[2019-09-22 03:01] LABS: PARTIAL THROMBOPLASTIN TIME 32 SECONDS (22-32)
[2019-09-22] MEDS: normal saline 1000ml 1,000 ML IV SCH ×2 (03:05→12:43)
[2019-09-22 03:06] LABS: ALANINE AMINOTRANSFERASE 29 U/L (12-78); ALBUMIN 2.1 G/DL (3.4-5.0); ALBUMIN/GLOBULIN RATIO 0.7 (1.1-1.5); ALKALINE PHOSPHATASE 50 IU/L (46-116); ANION GAP 8 (8-16); ASPARTATE AMINO TRANSFERASE 39 U/L (10-37); BILIRUBIN,TOTAL 0.7 MG/DL (0.1-1.0); BLOOD UREA NITROGEN 58 MG/DL (7-18); BUN/CREATININE RATIO 18.5 (6.6-38.0); CALCIUM 8.2 MG/DL (8.5-10.1); CHLORIDE 100 MMOL/L (99-107); CREATININE 3.13 MG/DL (0.40-0.90); GLUCOSE 157 MG/DL (70-104); MAGNESIUM 1.9 MG/DL (1.5-2.4); PHOSPHORUS 4.2 MG/DL (2.3-4.5); POTASSIUM 4.6 MMOL/L (3.5-5.1); SODIUM 139 MMOL/L (135-145); TOTAL CARBON DIOXIDE 30.8 MMOL/L (24-32); TOTAL PROTEIN 5.2 G/DL (6.4-8.2); eGFR 14 ML/MIN
[2019-09-22] MEDS: K, MAG and/or Phos replacement - Verify level? MC SCH (08:00)
[2019-09-22] MEDS: lactobacillus rhamnosus 10,000 MMU CELLS/CAPSULE PO SCH ×2 (08:12→20:28)
[2019-09-22] MEDS: pantoprazole 40 MG vial IV SCH (08:12)
[2019-09-22] MEDS: NYSTATIN CREAM - 30GM TUBE TP SCH ×2 (08:12→20:00)
[2019-09-22] MEDS: piperacillin/tazo 3.375gm/50ml 50 ML IV SCH ×2 (08:12→20:28)
[2019-09-22 09:56] LABS: ABG BASE EXCESS 1.1 mmol/L (-2.0-3.0); ABG HCO3 26.5 mmol/L (22.0-26.0); ABG OXYGEN SATURATION 96.1 % (95-98); ABG PCO2 (T) 44.8 mmHg (35.0-45.0); ABG PH (T) 7.388 (7.350-7.450); ABG PO2 (T) 83.1 mmHg (83-108); ALLEN'S TEST Positive; FCOHb 0.3 % (0.5-1.5); FMetHb 0.2 % (0.3-1.12); FO2Hb 95.6 % (94-100); MINUTE VOLUME 4 L/min; PATIENT TEMPERATURE 36.4; PEEP 5 cm H2O; RESPIRATORY RATE 12 b/min; RESPIRATORY RATE (OBSERVED) 12 b/min; TIDAL VOLUME 350 mL; TOTAL HEMOGLOBIN 10.6 G/dl (12.0-16.0)
--- NOTE | 2019-09-22 11:46 | NUR ---
reassessment: Pt s/p rewarming on hypothermia protocol. S/p EEG showing diffuse dysfunction per MD note. Per ladle puller; pending d/w pt family prior to nutrition support. Day 2 s/p rewarming and remains NPO w/ MAP currently 71. Nutrition support recs below. Will continue to monitor. Initial: Pt admit after cardiac arrest requiring intubation. No TF at this time as pt currently on hypothermic protocol. TF recommendations below using patient's IBW as current wt isn't scaled, however a scaled weight would be appropriate to best determine the patient's estimated nutrient needs. Pt with hx T2DM, current A1c is 7.4. Pt would benefit from DM education following extubation once stable. Pt with low Deuce of 10, skin intact per physical assessment. Will continue to follow. Recommendations: 1) If prolonged intubation and to receive TF, recommend continuous TF using Vital AF with goal rate of 65mL/hr 2) If above, Prealbumin q M/TH; daily weights 3) Scaled weight for accuracy 4) PO diet advancement to heart healthy CHO controlled after extubation as medically indicated Addendum: 09/22/19 at [address] Amended: Links added.
--- NOTE | 2019-09-22 19:25 | NUR ---
183..Patient in room ICU 2046. I have received report from Evelyne TOVAR and had the opportunity to ask questions and assume patient care.
[2019-09-22] MEDS: insulin glargine (Lantus) pen - multi-dose SQ SCH (21:00)
[2019-09-22] MEDS: DOBUTamine-DoBUTrex 500mg/D5W 250 ML IV SCH (21:27)
--- NOTE | 2019-09-22 23:46 | NUR ---
2000..Assessment as noted.
[2019-09-23] VITALS (24 sets, daily range): BP systolic 115–173; BP diastolic 47–74
--- NOTE | 2019-09-23 00:32 | NUR ---
0000..No changes noted.
[2019-09-23] MEDS: normal saline 1000ml 1,000 ML IV SCH (01:33)
[2019-09-23 02:58] LABS: BASOPHILS % (AUTO) 0.6 % (0-1); EOSINOPHILS # (AUTO) 0.1 X10'3 (0-0.9); EOSINOPHILS % (AUTO) 1.7 % (0-6); HEMOGLOBIN 9.5 g/dl (12.0-16.0); LYMPHOCYTES # (AUTO) 0.5 X10'3 (1.1-4.8); LYMPHOCYTES % (AUTO) 8.5 % (21-51); MEAN CORPUSCULAR HEMOGLOBIN 31.5 PG (27.0-31.0); MEAN CORPUSCULAR HGB CONC 32.8 g/dL (33.0-36.5); MEAN PLATELET VOLUME 8.8 FL (7.4-10.4); MONOCYTES # (AUTO) 0.5 X10'3 (0-0.9); MONOCYTES % (AUTO) 8.3 % (2-12); NEUTROPHILS # (AUTO) 4.6 X10'3 (1.8-7.7); NEUTROPHILS % (AUTO) 80.9 % (42-75); PLATELET COUNT 73 X10'3 (140-440); RED BLOOD COUNT 3.02 X10'6 (4.20-5.60); RED CELL DISTRIBUTION WIDTH 17.1 % (11.5-14.5); WHITE BLOOD COUNT 5.6 X10'3 (4.5-11.0)
[2019-09-23 03:11] LABS: PARTIAL THROMBOPLASTIN TIME 30 SECONDS (22-32)
[2019-09-23 03:12] LABS: ALANINE AMINOTRANSFERASE 29 U/L (12-78); ALBUMIN 2.1 G/DL (3.4-5.0); ALBUMIN/GLOBULIN RATIO 0.6 (1.1-1.5); ALKALINE PHOSPHATASE 51 IU/L (46-116); ANION GAP 9 (8-16); ASPARTATE AMINO TRANSFERASE 41 U/L (10-37); BILIRUBIN,TOTAL 0.8 MG/DL (0.1-1.0); BLOOD UREA NITROGEN 62 MG/DL (7-18); BUN/CREATININE RATIO 18.4 (6.6-38.0); CALCIUM 7.9 MG/DL (8.5-10.1); CHLORIDE 101 MMOL/L (99-107); CREATININE 3.37 MG/DL (0.40-0.90); GLUCOSE 147 MG/DL (70-104); MAGNESIUM 1.8 MG/DL (1.5-2.4); PHOSPHORUS 3.9 MG/DL (2.3-4.5); POTASSIUM 4.4 MMOL/L (3.5-5.1); SODIUM 141 MMOL/L (135-145); TOTAL CARBON DIOXIDE 30.7 MMOL/L (24-32); TOTAL PROTEIN 5.4 G/DL (6.4-8.2); eGFR 13 ML/MIN
[2019-09-23 03:26] LABS: ANISOCYTOSIS 1+; HYPOCHROMASIA 1+; PLATELET ESTIMATE DECREASED
[2019-09-23] MEDS: mineral oil/petrolatum ophthal oint EACHEYE SCH ×6 (04:00→20:29)
[2019-09-23 04:06] LABS: ABG HCO3 25.4 mmol/L (22.0-26.0); ABG OXYGEN SATURATION 97.4 % (95-98); ABG PCO2 (T) 38.9 mmHg (35.0-45.0); ABG PH (T) 7.431 (7.350-7.450); ABG PO2 (T) 94.2 mmHg (83-108); ALLEN'S TEST Positive; FCOHb 0.1 % (0.5-1.5); FO2Hb 97.3 % (94-100); MINUTE VOLUME 4 L/min; PATIENT TEMPERATURE 36.4; PEEP 5 cm H2O; RESPIRATORY RATE 12 b/min; RESPIRATORY RATE (OBSERVED) 12 b/min; TIDAL VOLUME 350 mL; TOTAL HEMOGLOBIN 10.6 G/dl (12.0-16.0)
--- NOTE | 2019-09-23 05:14 | NUR ---
0400..No changes noted.
--- NOTE | 2019-09-23 06:19 | NUR ---
0600..Problems reprioritized. Patient report given, questions answered & plan of care reviewed with Graciela TOVAR.
[2019-09-23] MEDS: pantoprazole 40 MG vial IV SCH (08:01)
[2019-09-23] MEDS: NYSTATIN CREAM - 30GM TUBE TP SCH ×2 (08:02→20:29)
[2019-09-23] MEDS: lactobacillus rhamnosus 10,000 MMU CELLS/CAPSULE PO SCH ×2 (08:02→20:29)
[2019-09-23] MEDS: piperacillin/tazo 3.375gm/50ml 50 ML IV SCH ×2 (08:02→20:29)
[2019-09-23] MEDS: K, MAG and/or Phos replacement - Verify level? MC SCH (08:21)
--- NOTE | 2019-09-23 12:42 | NUR ---
TF Consult: OGTF to start today per MD. Recs below given prolonged intubation needs using updated first official bed scale wt 104.4kg though positive at least 4L fluid balance since admit w/ +4 edema. 100kg wt used to calculate nutrition needs. Will monitor for nutrition support tolerance and signs of refeeding given 5 days no nutrition prior. Recommendations: 1) Continuous OGTF per MD; using Vital AF at 70mL/hr goal; to provide 1680 ml fluid, 1361ml free water, 2016kcals, and 126g protein. Initiate at 20ml/hr and advance 20ml Q8 to goal as tolerated. 2) water flush 200ml Q4 3) Prealbumin q /; daily weights 4) monitor for signs of refeeding syndrome 5) PO diet advancement to heart healthy CHO controlled after extubation as medically indicated Addendum: 09/23/19 at [address] Amended: Links added.
--- NOTE | 2019-09-23 18:25 | NUR ---
assumed care from Frank TOVAR no questions or concerns after assuming care
--- NOTE | 2019-09-23 20:05 | NUR ---
patient un responsive to painful stimuli, has not made purposeful movement will continue to monitor patients rr even un labored no observable s/s of acute stress at this time patient is not on sedation or in restraints
[2019-09-23] MEDS: famotidine/PF 10 mg/ml inj IV SCH (20:29)
[2019-09-23] MEDS: insulin glargine (Lantus) pen - multi-dose SQ SCH (21:00)
--- NOTE | 2019-09-23 23:20 | NUR ---
patient has no change in condition since last note entry will continue to monitor
[2019-09-24] VITALS (24 sets, daily range): BP systolic 100–152; BP diastolic 47–78
--- NOTE | 2019-09-24 01:20 | NUR ---
patient in bed covers on eyes closed rr even un labored no observable s/s of acute stress at this time will continue to monitor, still no neurological improvement at this time
[2019-09-24] MEDS: insulin regular, human vial - multi-dose SQ SCH ×4 (02:10→20:37)
[2019-09-24 02:57] LABS: PARTIAL THROMBOPLASTIN TIME 30 SECONDS (22-32)
[2019-09-24 02:59] LABS: BASOPHILS % (AUTO) 0.4 % (0-1); EOSINOPHILS # (AUTO) 0.1 X10'3 (0-0.9); EOSINOPHILS % (AUTO) 1.3 % (0-6); HEMATOCRIT 26.4 % (35.0-45.0); HEMOGLOBIN 8.9 g/dl (12.0-16.0); LYMPHOCYTES # (AUTO) 0.4 X10'3 (1.1-4.8); LYMPHOCYTES % (AUTO) 8.1 % (21-51); MEAN CORPUSCULAR HEMOGLOBIN 32.4 PG (27.0-31.0); MEAN CORPUSCULAR HGB CONC 33.8 g/dL (33.0-36.5); MEAN PLATELET VOLUME 8.7 FL (7.4-10.4); MONOCYTES # (AUTO) 0.4 X10'3 (0-0.9); NEUTROPHILS # (AUTO) 4.3 X10'3 (1.8-7.7); NEUTROPHILS % (AUTO) 82.2 % (42-75); PLATELET COUNT 69 X10'3 (140-440); RED BLOOD COUNT 2.75 X10'6 (4.20-5.60); RED CELL DISTRIBUTION WIDTH 17.5 % (11.5-14.5); WHITE BLOOD COUNT 5.3 X10'3 (4.5-11.0)
[2019-09-24 03:04] LABS: ALANINE AMINOTRANSFERASE 31 U/L (12-78); ALBUMIN 2.1 G/DL (3.4-5.0); ALBUMIN/GLOBULIN RATIO 0.7 (1.1-1.5); ALKALINE PHOSPHATASE 50 IU/L (46-116); ANION GAP 13 (8-16); ASPARTATE AMINO TRANSFERASE 42 U/L (10-37); BILIRUBIN,TOTAL 0.8 MG/DL (0.1-1.0); BLOOD UREA NITROGEN 59 MG/DL (7-18); BUN/CREATININE RATIO 18.3 (6.6-38.0); CALCIUM 7.9 MG/DL (8.5-10.1); CHLORIDE 100 MMOL/L (99-107); CREATININE 3.23 MG/DL (0.40-0.90); GLUCOSE 191 MG/DL (70-104); MAGNESIUM 1.7 MG/DL (1.5-2.4); PHOSPHORUS 3.9 MG/DL (2.3-4.5); SODIUM 141 MMOL/L (135-145); TOTAL CARBON DIOXIDE 27.8 MMOL/L (24-32); TOTAL PROTEIN 5.3 G/DL (6.4-8.2); eGFR 14 ML/MIN
[2019-09-24 03:35] LABS: ABG BASE EXCESS -1.7 mmol/L (-2.0-3.0); ABG HCO3 23.9 mmol/L (22.0-26.0); ABG OXYGEN SATURATION 91.8 % (95-98); ABG PH (T) 7.361 (7.350-7.450); ABG PO2 (T) 64.7 mmHg (83-108); ALLEN'S TEST Positive; FCOHb 0.3 % (0.5-1.5); FMetHb 0.1 % (0.3-1.12); FO2Hb 91.4 % (94-100); MINUTE VOLUME 4 L/min; PATIENT TEMPERATURE 36.4; PEEP 5 cm H2O; RESPIRATORY RATE 12 b/min; RESPIRATORY RATE (OBSERVED) 12 b/min; TIDAL VOLUME 350 mL; TOTAL HEMOGLOBIN 9.8 G/dl (12.0-16.0)
--- NOTE | 2019-09-24 03:48 | NUR ---
patients condition unchanged, patient in bed covers on eyes closed rr even un labored no observable s/s of acute stress at this time will continue to monitor
--- NOTE | 2019-09-24 06:29 | NUR ---
SBAR JOSH SOTELO NO QUESTIONS OR CONCERNS AFTER ASSUMING CARE
--- NOTE | 2019-09-24 06:38 | NUR ---
Patient in room ICU 2046. I have received report from Seth TOVAR and had the opportunity to ask questions and assume patient care.
[2019-09-24] MEDS: lactobacillus rhamnosus 10,000 MMU CELLS/CAPSULE PO SCH ×2 (07:36→20:30)
[2019-09-24] MEDS: famotidine/PF 10 mg/ml inj IV SCH ×2 (07:36→20:29)
[2019-09-24] MEDS: piperacillin/tazo 3.375gm/50ml 50 ML IV SCH ×2 (07:36→20:29)
[2019-09-24] MEDS: mineral oil/petrolatum ophthal oint EACHEYE SCH ×5 (07:37→20:29)
[2019-09-24] MEDS: NYSTATIN CREAM - 30GM TUBE TP SCH ×2 (07:37→20:30)
[2019-09-24] MEDS: K, MAG and/or Phos replacement - Verify level? MC SCH (08:00)
[2019-09-24 08:10] LABS: ANISOCYTOSIS 1+; NUCLEATED RED BLOOD CELLS 2 /100WBC (0-0); PLATELET ESTIMATE DECREASED; TOTAL CELLS COUNTED 100
[2019-09-24 08:11] LABS: ACANTHOCYTES 1+
[2019-09-24 08:12] LABS: POLYCHROMASIA 1+
[2019-09-24 08:13] LABS: HYPOCHROMASIA 1+
[2019-09-24] MEDS: normal saline 1000ml 1,000 ML IV SCH (12:57)
--- NOTE | 2019-09-24 14:00 | NUR ---
tube feeding restarted. Tube feeding stopped at 1300 due to pt regurgitating. residuals 175mL at this time. will continue to monitor.
--- NOTE | 2019-09-24 18:29 | NUR ---
Problems reprioritized. Patient report given, questions answered & plan of care reviewed with Seth TOVAR.
--- NOTE | 2019-09-24 18:30 | NUR ---
assumed care from cristi mondragon no questions or concerns after assuming care
--- NOTE | 2019-09-24 19:33 | NUR ---
starting tube feeding at 30 ml/hr patient has not tolerated 60ml/hr today per day shift rn, Had to turn tube feeding off twice today due to regurgitating tube feeding, October barrel burner made aware of the patient not tolerating tube feeding.
[2019-09-24] MEDS: ipratropium/albuterol 3ml nebule NEB PRN (19:42)
--- NOTE | 2019-09-24 19:45 | NUR ---
October human resources associate verbalized to give patient some zofran from the regurgitating "vomiting."
[2019-09-24] MEDS: ondansetron/PF 4mg/2ml inj IV PRN (20:30)
[2019-09-24] MEDS: insulin glargine (Lantus) pen - multi-dose SQ SCH (20:39)
--- NOTE | 2019-09-24 21:30 | NUR ---
appears zofran has worked will advance tube feeding 20mL hr q 8 hrs until goal of 75 mL /hr, started patient at 30 mL/hr ellen advance 20mL/hr at 0400 hrs residuals WNL
[2019-09-25] VITALS (24 sets, daily range): BP systolic 101–143; BP diastolic 44–87
[2019-09-25] MEDS: mineral oil/petrolatum ophthal oint EACHEYE SCH ×6 (00:16→20:51)
--- NOTE | 2019-09-25 00:20 | NUR ---
NOTICED PATIENT STARTING TO HAVE TREMORS IN JAW AND NECK REGION, CONCERNED THIS MIGHT BE SEIZURE ACTIVITY, I CALLED WALI CROOKS AND FATUMA GARCIA IN ROOM TO HELP ASSESS IF PATIENT WAS SEIZING, FATUMA GARCIA FEELS IT IS AND ORDERED ATIVAN AND TO HAVE BIS APPLIED WILL CONTINUE TO MONITOR AND UPDATE
[2019-09-25] MEDS ORDERED: LORazepam 2 mg/ml vial IV ONE (00:40)
--- NOTE | 2019-09-25 01:00 | NUR ---
PATIENT APPEARS TO HAVE IMPROVED AFTER ADMINISTERING ATIVAN THE TREMORS HAVE STOPPED RR EVEN UN LABORED NO OBSERVABLE S/S OF ACUTE STRESS AT THIS TIME WILL CONTINUE TO MONITOR
[2019-09-25] MEDS: insulin regular, human vial - multi-dose SQ SCH ×4 (02:20→21:05)
[2019-09-25 02:37] LABS: BASOPHILS % (AUTO) 0.6 % (0-1); EOSINOPHILS % (AUTO) 0.9 % (0-6); HEMATOCRIT 26.7 % (35.0-45.0); LYMPHOCYTES # (AUTO) 0.4 X10'3 (1.1-4.8); LYMPHOCYTES % (AUTO) 7.6 % (21-51); MEAN CORPUSCULAR HEMOGLOBIN 32.3 PG (27.0-31.0); MEAN CORPUSCULAR HGB CONC 33.5 g/dL (33.0-36.5); MEAN CORPUSCULAR VOLUME 96.3 FL (78-98); MEAN PLATELET VOLUME 9.5 FL (7.4-10.4); MONOCYTES # (AUTO) 0.6 X10'3 (0-0.9); MONOCYTES % (AUTO) 10.1 % (2-12); NEUTROPHILS # (AUTO) 4.5 X10'3 (1.8-7.7); NEUTROPHILS % (AUTO) 80.8 % (42-75); PLATELET COUNT 62 X10'3 (140-440); RED BLOOD COUNT 2.78 X10'6 (4.20-5.60); RED CELL DISTRIBUTION WIDTH 17.7 % (11.5-14.5); WHITE BLOOD COUNT 5.5 X10'3 (4.5-11.0)
[2019-09-25 02:49] LABS: ALANINE AMINOTRANSFERASE 34 U/L (12-78); ALBUMIN 2.1 G/DL (3.4-5.0); ALBUMIN/GLOBULIN RATIO 0.6 (1.1-1.5); ALKALINE PHOSPHATASE 54 IU/L (46-116); ANION GAP 7 (8-16); ASPARTATE AMINO TRANSFERASE 46 U/L (10-37); BILIRUBIN,TOTAL 0.9 MG/DL (0.1-1.0); BLOOD UREA NITROGEN 58 MG/DL (7-18); BUN/CREATININE RATIO 17.4 (6.6-38.0); CALCIUM 7.8 MG/DL (8.5-10.1); CHLORIDE 101 MMOL/L (99-107); CREATININE 3.34 MG/DL (0.40-0.90); GLUCOSE 178 MG/DL (70-104); MAGNESIUM 1.7 MG/DL (1.5-2.4); PHOSPHORUS 3.6 MG/DL (2.3-4.5); POTASSIUM 3.7 MMOL/L (3.5-5.1); SODIUM 139 MMOL/L (135-145); TOTAL CARBON DIOXIDE 30.9 MMOL/L (24-32); TOTAL PROTEIN 5.7 G/DL (6.4-8.2); eGFR 13 ML/MIN
[2019-09-25 02:59] LABS: PARTIAL THROMBOPLASTIN TIME 30 SECONDS (22-32)
--- NOTE | 2019-09-25 03:13 | NUR ---
PATIENT HAS NOT SHOWN ANY OTHER SEIZURE TYPE ACTIVITY SINCE ADMINISTERING THE ORDERED ATIVAN, PATIENT RR EVEN UN LABORED NO OBSERVABLE S/S OF ACUTE STRESS AT THIS TIME, WILL CONTINUE TO MONITOR
[2019-09-25 03:55] LABS: ABG BASE EXCESS 1.5 mmol/L (-2.0-3.0); ABG HCO3 26.3 mmol/L (22.0-26.0); ABG OXYGEN SATURATION 95.4 % (95-98); ABG PCO2 (T) 42.9 mmHg (35.0-45.0); ABG PH (T) 7.407 (7.350-7.450); ALLEN'S TEST Positive; FCOHb 0.6 % (0.5-1.5); FMetHb 0.1 % (0.3-1.12); FO2Hb 94.7 % (94-100); MINUTE VOLUME 5 L/min; PATIENT TEMPERATURE 37.2; PEEP 5 cm H2O; RESPIRATORY RATE 12 b/min; RESPIRATORY RATE (OBSERVED) 14 b/min; TIDAL VOLUME 350 mL; TOTAL HEMOGLOBIN 10.4 G/dl (12.0-16.0)
[2019-09-25] MEDS: LORazepam 2 mg/ml vial IV PRN ×2 (04:26→20:55)
[2019-09-25 06:11] LABS: TOTAL CELLS COUNTED 100
[2019-09-25 06:12] LABS: ANISOCYTOSIS 1+; PLATELET ESTIMATE DECREASED
--- NOTE | 2019-09-25 06:24 | NUR ---
SBAR TO VIMAL RN NO QUESTIONS OR CONCERNS AFTER ASSUMING CARE
[2019-09-25] MEDS: famotidine/PF 10 mg/ml inj IV SCH (07:46)
[2019-09-25] MEDS: lactobacillus rhamnosus 10,000 MMU CELLS/CAPSULE PO SCH ×2 (07:46→20:52)
[2019-09-25] MEDS: piperacillin/tazo 3.375gm/50ml 50 ML IV SCH ×2 (07:47→20:53)
[2019-09-25] MEDS: NYSTATIN CREAM - 30GM TUBE TP SCH ×2 (07:47→20:52)
[2019-09-25] MEDS: K, MAG and/or Phos replacement - Verify level? MC SCH (08:00)
[2019-09-25] MEDS ORDERED: FLU VACC QS2019-20 36MOS UP/PF 60 MCG/0.5 ML SYRINGE IMVAC ONE (10:00)
--- NOTE | 2019-09-25 15:27 | NUR ---
Received orders from Dr. Martel to remove ashok to right back side of the head. Also was told that the MRI will be delayed until tomorrow to get the pacemaker brand representative here for MRI. Will continue to monitor.
--- NOTE | 2019-09-25 16:20 | NUR ---
Patient's residual was 325 ml, returned all of the residual per GRV flow sheet and due to insulin for next 6 hours provided. Provided only 30 ml flush rather than the 200 ml to allow nutrition to absorb, continued tube feed per flowsheet. Will continue to monitor.
--- NOTE | 2019-09-25 18:24 | NUR ---
Problems reprioritized. Patient report given, questions answered & plan of care reviewed with Jolie TOVAR.
[2019-09-25] MEDS: famotidine 20mg tablet PO SCH (20:52)
[2019-09-25] MEDS: insulin glargine (Lantus) pen - multi-dose SQ SCH (21:06)
[2019-09-25] MEDS: ondansetron/PF 4mg/2ml inj IV PRN (21:40)
[2019-09-26] VITALS (24 sets, daily range): BP systolic 112–156; BP diastolic 52–83
[2019-09-26 01:15] LABS: BASOPHILS % (AUTO) 0.4 % (0-1); EOSINOPHILS # (AUTO) 0.1 X10'3 (0-0.9); EOSINOPHILS % (AUTO) 0.9 % (0-6); HEMATOCRIT 27.7 % (35.0-45.0); HEMOGLOBIN 9.3 g/dl (12.0-16.0); LYMPHOCYTES # (AUTO) 0.5 X10'3 (1.1-4.8); LYMPHOCYTES % (AUTO) 5.6 % (21-51); MEAN CORPUSCULAR HEMOGLOBIN 32.3 PG (27.0-31.0); MEAN CORPUSCULAR HGB CONC 33.7 g/dL (33.0-36.5); MEAN CORPUSCULAR VOLUME 95.8 FL (78-98); MEAN PLATELET VOLUME 9.7 FL (7.4-10.4); MONOCYTES # (AUTO) 0.7 X10'3 (0-0.9); MONOCYTES % (AUTO) 7.7 % (2-12); NEUTROPHILS % (AUTO) 85.4 % (42-75); PLATELET COUNT 75 X10'3 (140-440); RED BLOOD COUNT 2.89 X10'6 (4.20-5.60); WHITE BLOOD COUNT 9.4 X10'3 (4.5-11.0)
[2019-09-26 01:23] LABS: PARTIAL THROMBOPLASTIN TIME 30 SECONDS (22-32)
[2019-09-26 01:25] LABS: ALANINE AMINOTRANSFERASE 27 U/L (12-78); ALBUMIN 2.2 G/DL (3.4-5.0); ALBUMIN/GLOBULIN RATIO 0.6 (1.1-1.5); ALKALINE PHOSPHATASE 54 IU/L (46-116); ANION GAP 9 (8-16); ASPARTATE AMINO TRANSFERASE 35 U/L (10-37); BILIRUBIN,TOTAL 0.9 MG/DL (0.1-1.0); BLOOD UREA NITROGEN 63 MG/DL (7-18); BUN/CREATININE RATIO 18.9 (6.6-38.0); CALCIUM 7.7 MG/DL (8.5-10.1); CHLORIDE 100 MMOL/L (99-107); CREATININE 3.33 MG/DL (0.40-0.90); GLUCOSE 123 MG/DL (70-104); MAGNESIUM 1.8 MG/DL (1.5-2.4); PHOSPHORUS 3.7 MG/DL (2.3-4.5); POTASSIUM 3.6 MMOL/L (3.5-5.1); PREALBUMIN 9.9 MG/DL (19-36); SODIUM 140 MMOL/L (135-145); TOTAL CARBON DIOXIDE 30.6 MMOL/L (24-32); TOTAL PROTEIN 5.9 G/DL (6.4-8.2); eGFR 13 ML/MIN
[2019-09-26] MEDS: insulin regular, human vial - multi-dose SQ SCH ×3 (02:46→20:09)
[2019-09-26 03:41] LABS: ABG BASE EXCESS 2.7 mmol/L (-2.0-3.0); ABG HCO3 28.5 mmol/L (22.0-26.0); ABG OXYGEN SATURATION 95.5 % (95-98); ABG PCO2 (T) 50.6 mmHg (35.0-45.0); ABG PH (T) 7.371 (7.350-7.450); ABG PO2 (T) 81.3 mmHg (83-108); ALLEN'S TEST Positive; FCOHb 0.8 % (0.5-1.5); FMetHb 0.1 % (0.3-1.12); FO2Hb 94.6 % (94-100); PATIENT TEMPERATURE 37.3; PEEP 5 cm H2O; RESPIRATORY RATE 12 b/min; RESPIRATORY RATE (OBSERVED) 16 b/min; TIDAL VOLUME 350 mL
[2019-09-26] MEDS: mineral oil/petrolatum ophthal oint EACHEYE SCH ×6 (04:00→20:01)
--- NOTE | 2019-09-26 05:44 | NUR ---
Patient was noted to have seizure like activity starting at 2042, BIS reading was 96, patient had clonic jerking and rhythmic muscle movements, eye gaze up and to the right, administered Ativan as ordered at 2054, no relief from symptoms. Notified Rodrick Smallwood NP, no change in orders. Throughout night patient continued to have clonic jerking and rhythmic muscle movements, observed to start in face and move down to bilateral upper and lower extremities, BIS at times unable to get number to to continued facial muscle jerking, without jerking muscle movements BIS reading ranged from 77-83.
[2019-09-26] MEDS: K, MAG and/or Phos replacement - Verify level? MC SCH (06:36)
[2019-09-26] MEDS: LORazepam 2 mg/ml vial IV PRN ×6 (07:39→22:09)
--- NOTE | 2019-09-26 07:43 | NUR ---
Pt started having seizure with [address] Potter and reported observations and informed him that pt is status post hypothermia protocol and is scheduled for EEG at 0900 hrs. Received orders for 1 gm loading dose of Keppra, 1 mg lorazepam IVP now, and 500 mg Keppra BID.
[2019-09-26] MEDS ORDERED: LORazepam 2 mg/ml vial IV ONE (07:45)
[2019-09-26] MEDS ORDERED: levetiracetam inj 1,000 MG in normal saline 100ml IV soln 90 ML IV SCH ×3 (07:45→20:00)
[2019-09-26] MEDS: famotidine 20mg tablet PO SCH (07:52)
[2019-09-26] MEDS: lactobacillus rhamnosus 10,000 MMU CELLS/CAPSULE PO SCH (07:52)
[2019-09-26] MEDS: piperacillin/tazo 3.375gm/50ml 50 ML IV SCH (07:52)
[2019-09-26] MEDS ORDERED: levetiracetam inj 500 MG in normal saline 100ml IV soln 95 ML IV SCH ×2 (07:53→20:00)
[2019-09-26] MEDS: NYSTATIN CREAM - 30GM TUBE TP SCH ×2 (07:55→20:01)
--- NOTE | 2019-09-26 08:23 | NUR ---
Per Dr. Potter give loading dose of 1gm Keppra now and 500mg this evening. Spoke to pharmacist Keila who states that what she understood as well. Clarified with Dr. Potter when he rounded on patient. Will continue to monitor.
[2019-09-26 08:25] LABS: ANISOCYTOSIS 1+; LARGE PLATELETS FEW; NUCLEATED RED BLOOD CELLS 2 /100WBC (0-0); PLATELET ESTIMATE DECREASED; TOTAL CELLS COUNTED 100
[2019-09-26 08:26] LABS: BURR CELLS 1+; ELLIPTOCYTES FEW; POIKILOCYTOSIS 1+
[2019-09-26 08:27] LABS: GIANT PLATELET FEW; POLYCHROMASIA 1+
--- NOTE | 2019-09-26 09:50 | NUR ---
Asked by Dr Potter to set up tele neuro consult regarding EEG findings of possible status per radiologic technologist mammogram. Pt came in s/p cardiac arrest on 09/18, and has remained comatose since warmed on 09/21. Per bedside RN, Saran pt has had twitching on right side since warming period. Pt received 1.0gm of Keppra and Ativan this morning without change in seizure like activity. 30 minute EEG completed at approx 0945. EEG left running in real time for neurologist though no longer recording. 1030 SOC tele neuro consult with Dr BUSTOS while daughter and grand daughter at bedside after verbal consent obtained. Dr BUSTOS describes poor prognosis based on information at hand and discussed this with family.
[2019-09-26] MEDS ORDERED: acetaminophen 325mg/10.15ml oral unit dose solution OGT PRN ×2 (11:14→11:16)
[2019-09-26] MEDS ORDERED: dextrose ORAL solution 15 GM/59 ML bottle OGT PRN ×2 (11:17→11:18)
[2019-09-26] MEDS ORDERED: Neutra Phos packet OGT PRN (11:18)
[2019-09-26] MEDS ORDERED: potassium Cl 20 mEq SR tablet OGT PRN (11:19)
--- NOTE | 2019-09-26 12:00 | NUR ---
Patient's residuals are 250ml, wasted 100 ml due to going to CT and will have patient lying down. Will continue to monitor,.
--- NOTE | 2019-09-26 13:15 | NUR ---
1215- CVP removed for patient to go to CT 1240-Jordin RT, Ibrahima RN, CT transport and myself transport patient to CT, Patient's vitals monitored on transport monitor and transport ventilator. Patient tolerated the transport well. 1315- Returned to patient's room after CT. Jordin reconnected vent tubing, Ibrahima TOVAR reconnected CVP and monitoring lines, suction and repositioned patient to offload pressure. Will continue to monitor.
[2019-09-26] MEDS: dextrose 50%-water 50ml dispensing syringe IV PRN (14:49)
[2019-09-26] MEDS: normal saline 1000ml 1,000 ML IV SCH (14:59)
--- NOTE | 2019-09-26 18:25 | NUR ---
Patient in room ICU 2046. I have received report from THERESA TOVAR and had the opportunity to ask questions and assume patient care.
--- NOTE | 2019-09-26 18:45 | NUR ---
pt intubated and not on sedation. pt has been having seizure activity throughout the day. ativan to be given q2h. pt lung sounds are course throughout. abdomen is large soft nontender with hypoactive bowel sounds. pt receiving tube feeding at 70 which is goal. reported that pt has been having high residuals, will continue to monitor and adjust per protocol. pt has upper and lower extremity pitting edema. pt right lower leg wounds dressed on day shift. heels placed in uni boots due to non blanching areas on heels. elbows and coccyx intact blanchable free from breakdown. pt buttocks is reddened but blanchable. pt having frequent bm, barrier spray and cream applied. vital signs stable. will continue to monitor.
--- NOTE | 2019-09-26 19:00 | NUR ---
PT continues to have seizure activity with clonic jerking movements of bilateral upper extremities and rapid eye movements. BIS score is unreadable despite changing the pads out. pt receiving q2h ativan pushes for seizure activity. md notified. will continue to monitor.
[2019-09-26] MEDS: lactobacillus rhamnosus 10,000 MMU CELLS/CAPSULE OGT SCH (20:01)
[2019-09-26] MEDS: famotidine 20mg tablet OGT SCH (20:01)
[2019-09-26] MEDS: insulin glargine (Lantus) pen - multi-dose SQ SCH (20:13)
--- NOTE | 2019-09-26 23:20 | NUR ---
pt continues to have seizures with little relief from ativan. ativan increase to 2mg/ml q1h push. will continue to monitor.
[2019-09-27] VITALS (24 sets, daily range): BP systolic 93–144; BP diastolic 47–101
[2019-09-27] MEDS: mineral oil/petrolatum ophthal oint EACHEYE SCH ×6 (00:32→20:00)
[2019-09-27] MEDS: insulin regular, human vial - multi-dose SQ SCH ×2 (01:54→20:51)
[2019-09-27] MEDS: LORazepam 2 mg/ml vial IV PRN ×7 (02:05→20:55)
[2019-09-27 02:32] LABS: BASOPHILS % (AUTO) 0.4 % (0-1); EOSINOPHILS # (AUTO) 0.2 X10'3 (0-0.9); EOSINOPHILS % (AUTO) 2.1 % (0-6); HEMOGLOBIN 9.3 g/dl (12.0-16.0); LYMPHOCYTES # (AUTO) 0.7 X10'3 (1.1-4.8); MEAN CORPUSCULAR HGB CONC 33.1 g/dL (33.0-36.5); MEAN CORPUSCULAR VOLUME 96.9 FL (78-98); MEAN PLATELET VOLUME 9.2 FL (7.4-10.4); MONOCYTES # (AUTO) 0.6 X10'3 (0-0.9); MONOCYTES % (AUTO) 7.3 % (2-12); NEUTROPHILS # (AUTO) 7.2 X10'3 (1.8-7.7); NEUTROPHILS % (AUTO) 82.2 % (42-75); PLATELET COUNT 97 X10'3 (140-440); RED BLOOD COUNT 2.89 X10'6 (4.20-5.60); RED CELL DISTRIBUTION WIDTH 18.3 % (11.5-14.5); WHITE BLOOD COUNT 8.8 X10'3 (4.5-11.0)
[2019-09-27 02:47] LABS: ALANINE AMINOTRANSFERASE 36 U/L (12-78); ALBUMIN 2.1 G/DL (3.4-5.0); ALBUMIN/GLOBULIN RATIO 0.6 (1.1-1.5); ALKALINE PHOSPHATASE 70 IU/L (46-116); ANION GAP 6 (8-16); ASPARTATE AMINO TRANSFERASE 42 U/L (10-37); BILIRUBIN,TOTAL 0.9 MG/DL (0.1-1.0); BLOOD UREA NITROGEN 64 MG/DL (7-18); BUN/CREATININE RATIO 20.5 (6.6-38.0); CALCIUM 7.9 MG/DL (8.5-10.1); CHLORIDE 102 MMOL/L (99-107); CREATININE 3.12 MG/DL (0.40-0.90); GLUCOSE 106 MG/DL (70-104); MAGNESIUM 1.9 MG/DL (1.5-2.4); PHOSPHORUS 3.8 MG/DL (2.3-4.5); POTASSIUM 3.3 MMOL/L (3.5-5.1); SODIUM 140 MMOL/L (135-145); TOTAL CARBON DIOXIDE 31.7 MMOL/L (24-32); TOTAL PROTEIN 5.8 G/DL (6.4-8.2); eGFR 14 ML/MIN
[2019-09-27 02:48] LABS: PARTIAL THROMBOPLASTIN TIME 30 SECONDS (22-32)
[2019-09-27 02:59] LABS: ANISOCYTOSIS 2+; PLATELET ESTIMATE DECREASED
[2019-09-27 03:00] LABS: ELLIPTOCYTES 1+; SCHISTOCYTES 1+
[2019-09-27] MEDS: potassium Cl 20mEq/100mL bag 100 ML IV PRN ×2 (03:19→04:37)
[2019-09-27 04:01] LABS: ABG BASE EXCESS 1.4 mmol/L (-2.0-3.0); ABG HCO3 26.8 mmol/L (22.0-26.0); ABG PCO2 (T) 44.6 mmHg (35.0-45.0); ABG PH (T) 7.393 (7.350-7.450); ABG PO2 (T) 89.1 mmHg (83-108); ALLEN'S TEST Positive; FCOHb 0.7 % (0.5-1.5); FMetHb 0.2 % (0.3-1.12); FO2Hb 96.1 % (94-100); MINUTE VOLUME 6 L/min; PATIENT TEMPERATURE 36.3; PEEP 5 cm H2O; RESPIRATORY RATE 12 b/min; RESPIRATORY RATE (OBSERVED) 17 b/min; TIDAL VOLUME 350 mL; TOTAL HEMOGLOBIN 9.4 G/dl (12.0-16.0)
--- NOTE | 2019-09-27 06:26 | NUR ---
I have reviewed and agree with all interventions, assessments performed and documented by becki mondragon.
[2019-09-27] MEDS: K, MAG and/or Phos replacement - Verify level? MC SCH (08:00)
[2019-09-27] MEDS: famotidine 20mg tablet OGT SCH ×2 (08:49→20:00)
[2019-09-27] MEDS: lactobacillus rhamnosus 10,000 MMU CELLS/CAPSULE OGT SCH ×2 (08:50→20:00)
[2019-09-27] MEDS: NYSTATIN CREAM - 30GM TUBE TP SCH ×2 (08:50→20:00)
[2019-09-27] MEDS: Levetiracetam-NS 500mg/100ml 100 ML IV SCH ×2 (08:51→20:00)
[2019-09-27] MEDS: furosemide 40mg/4ml inj IV SCH ×2 (12:14→21:05)
--- NOTE | 2019-09-27 12:36 | NUR ---
Reassessment: Patient is pending apnea test. Still on mechanical ventilation, unresponsive per MD note. Tube feedings tolerated at goal rate of 70 ml/hr with vital AF. GRV under 250 ml today. One small BM 09/26. Will continue to follow. Recommendations: 1) Continuous OGTF per MD; using Vital AF at 70mL/hr goal; to provide 1680 ml fluid, 1361ml free water, 2016kcals, and 126g protein. 2) water flush 200ml Q4 3) Prealbumin q /; daily weights Addendum: 09/27/19 at [address] Amended: Links added.
[2019-09-27 14:39] LABS: CLARITY,URINE TURBID (Clear); COLOR,URINE YELLOW (Yellow); GLUCOSE, URINE NEGATIVE (Neg); KETONES,URINE NEGATIVE (Neg); LEUKOCYTE ESTERASE ,URINE LARGE (Neg); NITRITES, URINE NEGATIVE (Neg); OCCULT BLOOD,URINE SMALL (Neg); PH,URINE 5.5 (4.8-8.0); PROTEIN,URINE NEGATIVE (Neg); UROBILINOGEN,URINE 0.2 E.U/dL (0.2-1.0)
[2019-09-27 14:41] LABS: UA COLLECTION TYPE NON-SPECIFIED
[2019-09-27 15:45] LABS: YEAST MANY /HPF (NEGATIVE)
[2019-09-27 15:46] LABS: WBC,URINE 0-4 /HPF (0-4)
[2019-09-27 15:47] LABS: SQUAMOUS EPITHELIAL CELL,UR MANY /LPF (FEW)
[2019-09-27 15:50] LABS: BACTERIA,URINE 1+ /HPF (Neg); RBC,URINE 0-2 /HPF (0-2)
[2019-09-27 15:51] LABS: TRANSITIONAL EPI CELLS,URINE FEW /HPF
--- NOTE | 2019-09-27 18:27 | NUR ---
Patient in room ICU 2046. I have received report from Jordyn TOVAR and had the opportunity to ask questions and assume patient care.
--- NOTE | 2019-09-27 18:45 | NUR ---
Pt in bed on still unresponsive ET tube in place on ventilator, right IJ triple lumen with CVP transducer, davalos in place and patent, and rectal tube found in place. Order for rectal tube order not found, initial insertion documentation not found, spoke with Selin and received order for rectal tube. Pts extremities edematous elevated on pillows uni boots in place. Changed wound dressing on LLE per orders. Will assess rectal tube and provide rectal tube care. Pt having continuous seizures administering Ativan per MD order. Vital signs stable at this time, will continue to monitor.
[2019-09-27] MEDS: insulin glargine (Lantus) pen - multi-dose SQ SCH (20:54)
[2019-09-28] VITALS (24 sets, daily range): BP systolic 97–139; BP diastolic 38–87
[2019-09-28] MEDS: mineral oil/petrolatum ophthal oint EACHEYE SCH ×6 (00:28→20:38)
[2019-09-28] MEDS: LORazepam 2 mg/ml vial IV PRN ×5 (01:30→23:24)
[2019-09-28 01:39] LABS: BASOPHILS # (AUTO) 0.1 X10'3 (0-0.2); BASOPHILS % (AUTO) 1.3 % (0-1); EOSINOPHILS # (AUTO) 0.1 X10'3 (0-0.9); EOSINOPHILS % (AUTO) 1.3 % (0-6); HEMATOCRIT 27.3 % (35.0-45.0); HEMOGLOBIN 9.1 g/dl (12.0-16.0); LYMPHOCYTES # (AUTO) 0.7 X10'3 (1.1-4.8); LYMPHOCYTES % (AUTO) 8.5 % (21-51); MEAN CORPUSCULAR HEMOGLOBIN 32.6 PG (27.0-31.0); MEAN CORPUSCULAR HGB CONC 33.3 g/dL (33.0-36.5); MEAN CORPUSCULAR VOLUME 97.6 FL (78-98); MEAN PLATELET VOLUME 9.4 FL (7.4-10.4); MONOCYTES # (AUTO) 0.6 X10'3 (0-0.9); NEUTROPHILS # (AUTO) 6.4 X10'3 (1.8-7.7); NEUTROPHILS % (AUTO) 80.9 % (42-75); PLATELET COUNT 139 X10'3 (140-440); RED CELL DISTRIBUTION WIDTH 18.2 % (11.5-14.5); WHITE BLOOD COUNT 7.9 X10'3 (4.5-11.0)
[2019-09-28 01:43] LABS: PARTIAL THROMBOPLASTIN TIME 30 SECONDS (22-32)
[2019-09-28 01:51] LABS: ALANINE AMINOTRANSFERASE 35 U/L (12-78); ALBUMIN 2.1 G/DL (3.4-5.0); ALBUMIN/GLOBULIN RATIO 0.6 (1.1-1.5); ALKALINE PHOSPHATASE 88 IU/L (46-116); ANION GAP 10 (8-16); ASPARTATE AMINO TRANSFERASE 38 U/L (10-37); BILIRUBIN,TOTAL 0.8 MG/DL (0.1-1.0); BLOOD UREA NITROGEN 73 MG/DL (7-18); CHLORIDE 103 MMOL/L (99-107); CREATININE 3.18 MG/DL (0.40-0.90); GLUCOSE 193 MG/DL (70-104); MAGNESIUM 1.9 MG/DL (1.5-2.4); POTASSIUM 3.8 MMOL/L (3.5-5.1); SODIUM 141 MMOL/L (135-145); TOTAL CARBON DIOXIDE 27.8 MMOL/L (24-32); TOTAL PROTEIN 5.7 G/DL (6.4-8.2); eGFR 14 ML/MIN
[2019-09-28] MEDS: insulin regular, human vial - multi-dose SQ SCH ×4 (02:21→20:56)
[2019-09-28 02:46] LABS: PLATELET ESTIMATE DECREASED
[2019-09-28 02:50] LABS: ACANTHOCYTES FEW; ANISOCYTOSIS 2+; ELLIPTOCYTES FEW; POLYCHROMASIA FEW; SCHISTOCYTES FEW
[2019-09-28 04:45] LABS: ABG HCO3 26.7 mmol/L (22.0-26.0); ABG OXYGEN SATURATION 96.8 % (95-98); ABG PCO2 (T) 47.8 mmHg (35.0-45.0); ABG PH (T) 7.365 (7.350-7.450); ABG PO2 (T) 99.2 mmHg (83-108); ALLEN'S TEST Positive; FCOHb 0.3 % (0.5-1.5); FMetHb 0.2 % (0.3-1.12); FO2Hb 96.3 % (94-100); MINUTE VOLUME 8 L/min; PEEP 5 cm H2O; RESPIRATORY RATE 12 b/min; RESPIRATORY RATE (OBSERVED) 13 b/min; TIDAL VOLUME 416 mL; TOTAL HEMOGLOBIN 9.4 G/dl (12.0-16.0)
[2019-09-28] MEDS: K, MAG and/or Phos replacement - Verify level? MC SCH (08:00)
[2019-09-28] MEDS: furosemide 40mg/4ml inj IV SCH ×3 (08:15→20:38)
[2019-09-28] MEDS: Levetiracetam-NS 500mg/100ml 100 ML IV SCH ×2 (08:15→20:38)
[2019-09-28] MEDS: famotidine 20mg tablet OGT SCH ×2 (08:15→20:38)
[2019-09-28] MEDS: lactobacillus rhamnosus 10,000 MMU CELLS/CAPSULE OGT SCH ×2 (08:15→20:38)
[2019-09-28] MEDS: NYSTATIN CREAM - 30GM TUBE TP SCH ×2 (08:16→20:58)
[2019-09-28] MEDS: normal saline 1000ml 1,000 ML IV SCH (11:55)
--- NOTE | 2019-09-28 14:20 | NUR ---
PRESSURE ULCER EDUCATION: DEFINITION: A pressure ulcer is an area of skin that breaks down when you stay in one position too long. The constant pressure against the skin reduces the blood flow to that area and the affected tissue dies. CAUSES: "Being bedridden or in a wheelchair "Fragile skin "Having a chronic condition, such as diabetes or vascular disease "Inability to move certain parts of your body without assistance "Older age "Incontinence of urine or stool SYMPTOMS: "A reddened area that DOES NOT turn white when pressed on - this can be the beginning of a pressure ulcer "A blister, deep sore or a crater - these can be advanced pressure ulcers FIRST AID: "Relieve the pressure on this area "Keep the area clean and dry "Call your primary doctor if you see any of the above symptoms "DO NOT massage the area "DO NOT use a donut shaped or ring shaped pillow- these actually interfere with the blood flow and cause complications PREVENTION: "Check for pressure ulcers everyday "Change position at least every two hours to relieve pressure "Use items that help relieve pressure- pillows, sheepskin, foam padding, and powders. "Keep skin clean and dry "Eat healthy well balanced meals "Exercise daily IF YOU SEE ANY OF THESE SYMPTOMS WHILE IN THE HOSPITAL - TELL YOUR NURSE IMMEDIATELY. IF YOU SEE ANY OF THESE SYMPTOMS WHILE AT HOME OR HAVE ANY QUESTIONS OR CONCERNS ABOUT PRESSURE ULCERS - CALL YOUR PRIMARY DOCTOR IMMEDIATELY. Addendum: 09/28/19 at 1420 by Angela Yanez RN Amended: Links added.
--- NOTE | 2019-09-28 18:59 | NUR ---
Problems reprioritized. Patient report given to Wilman, questions answered & plan of care reviewed with .
[2019-09-28] MEDS: insulin glargine (Lantus) pen - multi-dose SQ SCH (20:57)
[2019-09-29] VITALS (24 sets, daily range): BP systolic 80–143; BP diastolic 39–102
[2019-09-29] MEDS: mineral oil/petrolatum ophthal oint EACHEYE SCH ×6 (00:52→20:45)
[2019-09-29] MEDS: insulin regular, human vial - multi-dose SQ SCH ×4 (02:21→22:04)
[2019-09-29 02:37] LABS: BASOPHILS # (AUTO) 0.1 X10'3 (0-0.2); EOSINOPHILS # (AUTO) 0.1 X10'3 (0-0.9); EOSINOPHILS % (AUTO) 1.5 % (0-6); HEMATOCRIT 27.2 % (35.0-45.0); HEMOGLOBIN 9.2 g/dl (12.0-16.0); LYMPHOCYTES # (AUTO) 0.6 X10'3 (1.1-4.8); LYMPHOCYTES % (AUTO) 6.6 % (21-51); MEAN CORPUSCULAR HGB CONC 33.9 g/dL (33.0-36.5); MEAN CORPUSCULAR VOLUME 97.4 FL (78-98); MEAN PLATELET VOLUME 8.9 FL (7.4-10.4); MONOCYTES # (AUTO) 0.8 X10'3 (0-0.9); MONOCYTES % (AUTO) 8.8 % (2-12); NEUTROPHILS # (AUTO) 7.9 X10'3 (1.8-7.7); NEUTROPHILS % (AUTO) 82.1 % (42-75); PLATELET COUNT 190 X10'3 (140-440); RED BLOOD COUNT 2.79 X10'6 (4.20-5.60); RED CELL DISTRIBUTION WIDTH 18.6 % (11.5-14.5); WHITE BLOOD COUNT 9.6 X10'3 (4.5-11.0)
[2019-09-29 02:51] LABS: PARTIAL THROMBOPLASTIN TIME 27 SECONDS (22-32)
[2019-09-29 02:53] LABS: ALANINE AMINOTRANSFERASE 33 U/L (12-78); ALBUMIN/GLOBULIN RATIO 0.5 (1.1-1.5); ALKALINE PHOSPHATASE 111 IU/L (46-116); ANION GAP 10 (8-16); ASPARTATE AMINO TRANSFERASE 42 U/L (10-37); BILIRUBIN,TOTAL 0.9 MG/DL (0.1-1.0); BLOOD UREA NITROGEN 82 MG/DL (7-18); BUN/CREATININE RATIO 26.9 (6.6-38.0); CHLORIDE 103 MMOL/L (99-107); CREATININE 3.05 MG/DL (0.40-0.90); GLUCOSE 104 MG/DL (70-104); MAGNESIUM 1.8 MG/DL (1.5-2.4); PHOSPHORUS 3.9 MG/DL (2.3-4.5); POTASSIUM 3.5 MMOL/L (3.5-5.1); SODIUM 143 MMOL/L (135-145); TOTAL CARBON DIOXIDE 30.1 MMOL/L (24-32); TOTAL PROTEIN 5.9 G/DL (6.4-8.2); eGFR 15 ML/MIN
[2019-09-29 03:27] LABS: ANISOCYTOSIS 2+; BASOPHILS % (MANUAL) 5 % (0-1); EOSINOPHILS % (MANUAL) 2 % (0-6); LYMPHOCYTES % (MANUAL) 5 % (21-51); METAMYLEOCYTES% (MANUAL) 2 % (0-0); MONOCYTES % (MANUAL) 5 % (2-12); NEUTROPHILS % (MANUAL) 80 % (42-75); NUCLEATED RED BLOOD CELLS 2 /100WBC (0-0); PLATELET ESTIMATE NORMAL; REACTIVE LYMPHOCYTES % 1 % (0-0); TOTAL CELLS COUNTED 100
[2019-09-29 03:28] LABS: ELLIPTOCYTES 1+; SCHISTOCYTES 1+
[2019-09-29] MEDS: LORazepam 2 mg/ml vial IV PRN ×5 (05:05→23:55)
[2019-09-29 05:06] LABS: ABG BASE EXCESS 0.7 mmol/L (-2.0-3.0); ABG HCO3 25.6 mmol/L (22.0-26.0); ABG OXYGEN SATURATION 96.9 % (95-98); ABG PCO2 (T) 43.8 mmHg (35.0-45.0); ABG PH (T) 7.388 (7.350-7.450); ABG PO2 (T) 102.1 mmHg (83-108); ALLEN'S TEST Positive; FCOHb 0.2 % (0.5-1.5); FMetHb 0.3 % (0.3-1.12); FO2Hb 96.4 % (94-100); MINUTE VOLUME 8 L/min; PATIENT TEMPERATURE 37.9; PEEP 5 cm H2O; RESPIRATORY RATE 12 b/min; RESPIRATORY RATE (OBSERVED) 20 b/min; TIDAL VOLUME 350 mL; TOTAL HEMOGLOBIN 10.6 G/dl (12.0-16.0)
--- NOTE | 2019-09-29 06:32 | NUR ---
Problems reprioritized. Patient report given, questions answered & plan of care reviewed with Abby TOVAR.
[2019-09-29] MEDS: ipratropium/albuterol 3ml nebule NEB PRN (06:51)
[2019-09-29] MEDS: NYSTATIN CREAM - 30GM TUBE TP SCH ×2 (07:50→20:37)
[2019-09-29] MEDS: furosemide 40mg/4ml inj IV SCH ×3 (07:50→20:37)
[2019-09-29] MEDS: famotidine 20mg tablet OGT SCH ×2 (07:50→20:37)
[2019-09-29] MEDS: lactobacillus rhamnosus 10,000 MMU CELLS/CAPSULE OGT SCH ×2 (07:50→20:37)
[2019-09-29] MEDS: Levetiracetam-NS 500mg/100ml 100 ML IV SCH ×2 (07:50→20:46)
[2019-09-29] MEDS: K, MAG and/or Phos replacement - Verify level? MC SCH (08:00)
--- NOTE | 2019-09-29 12:35 | NUR ---
Reassessment: Still on mechanical ventilation, unresponsive per MD note. Tube feedings tolerated at goal rate of 70 ml/hr with vital AF, meeting nutrition needs. GRV under 250 ml. Small liquid stool 09/29. Will continue to follow. Recommendations: 1) Continuous OGTF per MD; using Vital AF at 70mL/hr goal; to provide 1680 ml fluid, 1361ml free water, 2016kcals, and 126g protein. 2) water flush 200ml Q4 3) Prealbumin q ; daily weights Addendum: 09/29/19 at [address] Amended: Links added.
[2019-09-29] MEDS: insulin glargine (Lantus) pen - multi-dose SQ SCH (22:05)
[2019-09-30] VITALS (24 sets, daily range): BP systolic 90–165; BP diastolic 44–105
[2019-09-30 02:37] LABS: BASOPHILS # (AUTO) 0.1 X10'3 (0-0.2); BASOPHILS % (AUTO) 0.7 % (0-1); EOSINOPHILS % (AUTO) 0.3 % (0-6); HEMATOCRIT 26.8 % (35.0-45.0); HEMOGLOBIN 8.9 g/dl (12.0-16.0); LYMPHOCYTES # (AUTO) 0.9 X10'3 (1.1-4.8); MEAN CORPUSCULAR HEMOGLOBIN 32.8 PG (27.0-31.0); MEAN CORPUSCULAR HGB CONC 33.2 g/dL (33.0-36.5); MEAN CORPUSCULAR VOLUME 98.7 FL (78-98); MEAN PLATELET VOLUME 8.5 FL (7.4-10.4); MONOCYTES # (AUTO) 1.1 X10'3 (0-0.9); MONOCYTES % (AUTO) 10.7 % (2-12); NEUTROPHILS # (AUTO) 8.1 X10'3 (1.8-7.7); NEUTROPHILS % (AUTO) 79.3 % (42-75); PLATELET COUNT 198 X10'3 (140-440); RED BLOOD COUNT 2.72 X10'6 (4.20-5.60); RED CELL DISTRIBUTION WIDTH 18.6 % (11.5-14.5); WHITE BLOOD COUNT 10.2 X10'3 (4.5-11.0)
[2019-09-30] MEDS: insulin regular, human vial - multi-dose SQ SCH ×4 (02:47→20:58)
[2019-09-30 02:49] LABS: PARTIAL THROMBOPLASTIN TIME 28 SECONDS (22-32)
[2019-09-30 02:52] LABS: ALANINE AMINOTRANSFERASE 32 U/L (12-78); ALBUMIN/GLOBULIN RATIO 0.5 (1.1-1.5); ALKALINE PHOSPHATASE 108 IU/L (46-116); ANION GAP 6 (8-16); ASPARTATE AMINO TRANSFERASE 45 U/L (10-37); BILIRUBIN,TOTAL 0.9 MG/DL (0.1-1.0); BLOOD UREA NITROGEN 91 MG/DL (7-18); BUN/CREATININE RATIO 29.8 (6.6-38.0); CHLORIDE 104 MMOL/L (99-107); CREATININE 3.05 MG/DL (0.40-0.90); GLUCOSE 112 MG/DL (70-104); MAGNESIUM 1.8 MG/DL (1.5-2.4); PHOSPHORUS 4.2 MG/DL (2.3-4.5); POTASSIUM 3.4 MMOL/L (3.5-5.1); SODIUM 142 MMOL/L (135-145); TOTAL CARBON DIOXIDE 31.8 MMOL/L (24-32); TOTAL PROTEIN 5.9 G/DL (6.4-8.2); eGFR 15 ML/MIN
[2019-09-30 03:02] LABS: ANISOCYTOSIS 2+; HYPOCHROMASIA 1+; PLATELET ESTIMATE NORMAL
[2019-09-30] MEDS: potassium Cl 20 mEq SR tablet OGT PRN ×3 (04:00→18:05)
[2019-09-30] MEDS: mineral oil/petrolatum ophthal oint EACHEYE SCH ×6 (04:00→20:39)
[2019-09-30 04:36] LABS: ABG BASE EXCESS 0.6 mmol/L (-2.0-3.0); ABG HCO3 24.7 mmol/L (22.0-26.0); ABG OXYGEN SATURATION 96.9 % (95-98); ABG PCO2 (T) 38.1 mmHg (35.0-45.0); ABG PH (T) 7.431 (7.350-7.450); ABG PO2 (T) 96.2 mmHg (83-108); ALLEN'S TEST Positive; FCOHb 0.1 % (0.5-1.5); FMetHb 0.1 % (0.3-1.12); FO2Hb 96.7 % (94-100); MINUTE VOLUME 8 L/min; PATIENT TEMPERATURE 37.5; PEEP 5 cm H2O; RESPIRATORY RATE 12 b/min; RESPIRATORY RATE (OBSERVED) 20 b/min; TIDAL VOLUME 350 mL; TOTAL HEMOGLOBIN 10.2 G/dl (12.0-16.0)
[2019-09-30] MEDS: LORazepam 2 mg/ml vial IV PRN ×6 (05:50→22:23)
[2019-09-30] MEDS: NYSTATIN CREAM - 30GM TUBE TP SCH ×2 (07:47→20:41)
[2019-09-30] MEDS: lactobacillus rhamnosus 10,000 MMU CELLS/CAPSULE OGT SCH ×2 (07:47→20:39)
[2019-09-30] MEDS: furosemide 40mg/4ml inj IV SCH ×2 (07:47→20:39)
[2019-09-30] MEDS: famotidine 20mg tablet OGT SCH ×2 (07:47→20:39)
[2019-09-30] MEDS: Levetiracetam-NS 500mg/100ml 100 ML IV SCH ×2 (07:48→20:38)
[2019-09-30] MEDS: K, MAG and/or Phos replacement - Verify level? MC SCH (07:52)
[2019-09-30] MEDS: normal saline 1000ml 1,000 ML IV SCH (12:45)
[2019-09-30] MEDS: ipratropium/albuterol 3ml nebule NEB PRN ×3 (15:28→23:05)
[2019-09-30] MEDS: insulin glargine (Lantus) pen - multi-dose SQ SCH (20:59)
[2019-10-01] VITALS (24 sets, daily range): BP systolic 98–165; BP diastolic 46–90
--- NOTE | 2019-10-01 00:30 | NUR ---
RN Note -Pt had 18 beat of V-tach. Trey Malone on unit and aware. AM labs drawn with mag and phos added. Pt condition otherwise unchanged. Continues clonic jerking which is somewhat lessened with Ativan.
[2019-10-01] MEDS: mineral oil/petrolatum ophthal oint EACHEYE SCH ×6 (00:55→20:48)
[2019-10-01 01:15] LABS: BASOPHILS # (AUTO) 0.1 X10'3 (0-0.2); BASOPHILS % (AUTO) 0.6 % (0-1); EOSINOPHILS % (AUTO) 0.4 % (0-6); HEMATOCRIT 26.4 % (35.0-45.0); HEMOGLOBIN 8.8 g/dl (12.0-16.0); LYMPHOCYTES # (AUTO) 0.8 X10'3 (1.1-4.8); LYMPHOCYTES % (AUTO) 7.3 % (21-51); MEAN CORPUSCULAR HEMOGLOBIN 32.5 PG (27.0-31.0); MEAN CORPUSCULAR HGB CONC 33.2 g/dL (33.0-36.5); MEAN CORPUSCULAR VOLUME 97.9 FL (78-98); MEAN PLATELET VOLUME 8.5 FL (7.4-10.4); MONOCYTES # (AUTO) 1.1 X10'3 (0-0.9); MONOCYTES % (AUTO) 10.8 % (2-12); NEUTROPHILS # (AUTO) 8.3 X10'3 (1.8-7.7); NEUTROPHILS % (AUTO) 80.9 % (42-75); PLATELET COUNT 212 X10'3 (140-440); RED BLOOD COUNT 2.69 X10'6 (4.20-5.60); WHITE BLOOD COUNT 10.3 X10'3 (4.5-11.0)
[2019-10-01] MEDS: LORazepam 2 mg/ml vial IV PRN ×8 (01:35→20:46)
[2019-10-01 01:54] LABS: PARTIAL THROMBOPLASTIN TIME 28 SECONDS (22-32)
[2019-10-01 01:56] LABS: ALANINE AMINOTRANSFERASE 28 U/L (12-78); ALBUMIN 1.9 G/DL (3.4-5.0); ALBUMIN/GLOBULIN RATIO 0.5 (1.1-1.5); ALKALINE PHOSPHATASE 104 IU/L (46-116); ANION GAP 10 (8-16); ASPARTATE AMINO TRANSFERASE 40 U/L (10-37); BILIRUBIN,TOTAL 0.8 MG/DL (0.1-1.0); BLOOD UREA NITROGEN 97 MG/DL (7-18); CALCIUM 8.2 MG/DL (8.5-10.1); CHLORIDE 106 MMOL/L (99-107); CREATININE 2.94 MG/DL (0.40-0.90); GLUCOSE 108 MG/DL (70-104); MAGNESIUM 1.8 MG/DL (1.5-2.4); PHOSPHORUS 4.3 MG/DL (2.3-4.5); POTASSIUM 3.6 MMOL/L (3.5-5.1); SODIUM 145 MMOL/L (135-145); TOTAL CARBON DIOXIDE 28.6 MMOL/L (24-32); TOTAL PROTEIN 5.8 G/DL (6.4-8.2); eGFR 15 ML/MIN
[2019-10-01] MEDS: insulin regular, human vial - multi-dose SQ SCH ×4 (02:58→21:17)
[2019-10-01 03:28] LABS: ACANTHOCYTES FEW; ANISOCYTOSIS 1+; ELLIPTOCYTES FEW; HYPOCHROMASIA 1+; MICROCYTOSIS 1+; NUCLEATED RED BLOOD CELLS 9 /100WBC (0-0); PLATELET ESTIMATE NORMAL; TOTAL CELLS COUNTED 100
[2019-10-01 05:20] LABS: ABG BASE EXCESS 3.3 mmol/L (-2.0-3.0); ABG HCO3 27.2 mmol/L (22.0-26.0); ABG OXYGEN SATURATION 95.7 % (95-98); ABG PCO2 (T) 39.6 mmHg (35.0-45.0); ABG PH (T) 7.457 (7.350-7.450); ABG PO2 (T) 86.6 mmHg (83-108); ALLEN'S TEST Positive; FCOHb 0.3 % (0.5-1.5); FMetHb 0.1 % (0.3-1.12); FO2Hb 95.3 % (94-100); MINUTE VOLUME 8 L/min; PATIENT TEMPERATURE 37.5; PEEP 5 cm H2O; RESPIRATORY RATE 12 b/min; RESPIRATORY RATE (OBSERVED) 20 b/min; TIDAL VOLUME 350 mL
[2019-10-01] MEDS: K, MAG and/or Phos replacement - Verify level? MC SCH (07:26)
[2019-10-01] MEDS: famotidine 10mg tablet OGT SCH ×2 (07:41→20:47)
[2019-10-01] MEDS: furosemide 40mg/4ml inj IV SCH ×2 (08:55→20:46)
[2019-10-01] MEDS: NYSTATIN CREAM - 30GM TUBE TP SCH ×2 (08:57→20:48)
[2019-10-01] MEDS: lactobacillus rhamnosus 10,000 MMU CELLS/CAPSULE OGT SCH ×2 (08:57→20:47)
[2019-10-01] MEDS: Levetiracetam-NS 500mg/100ml 100 ML IV SCH ×2 (08:58→20:56)
[2019-10-01] MEDS: normal saline 1000ml 1,000 ML IV SCH (09:10)
[2019-10-01] MEDS: insulin glargine (Lantus) pen - multi-dose SQ SCH (21:18)
[2019-10-02] VITALS (15 sets, daily range): BP systolic 107–162; BP diastolic 49–75
[2019-10-02] MEDS: insulin regular, human vial - multi-dose SQ SCH ×2 (02:56→13:45)
[2019-10-02] MEDS: mineral oil/petrolatum ophthal oint EACHEYE SCH ×5 (02:57→16:16)
[2019-10-02 03:52] LABS: BASOPHILS # (AUTO) 0.1 X10'3 (0-0.2); BASOPHILS % (AUTO) 0.7 % (0-1); EOSINOPHILS % (AUTO) 0.6 % (0-6); HEMATOCRIT 25.9 % (35.0-45.0); HEMOGLOBIN 8.7 g/dl (12.0-16.0); LYMPHOCYTES # (AUTO) 0.5 X10'3 (1.1-4.8); LYMPHOCYTES % (AUTO) 6.4 % (21-51); MEAN CORPUSCULAR HEMOGLOBIN 34.5 PG (27.0-31.0); MEAN CORPUSCULAR HGB CONC 33.5 g/dL (33.0-36.5); MEAN CORPUSCULAR VOLUME 103.1 FL (78-98); MONOCYTES # (AUTO) 0.8 X10'3 (0-0.9); MONOCYTES % (AUTO) 10.5 % (2-12); NEUTROPHILS # (AUTO) 6.3 X10'3 (1.8-7.7); NEUTROPHILS % (AUTO) 81.8 % (42-75); PLATELET COUNT 197 X10'3 (140-440); RED BLOOD COUNT 2.51 X10'6 (4.20-5.60); RED CELL DISTRIBUTION WIDTH 19.2 % (11.5-14.5); WHITE BLOOD COUNT 7.7 X10'3 (4.5-11.0)
[2019-10-02 03:56] LABS: ABG HCO3 27.8 mmol/L (22.0-26.0); ABG OXYGEN SATURATION 96.3 % (95-98); ABG PCO2 (T) 43.2 mmHg (35.0-45.0); ABG PH (T) 7.424 (7.350-7.450); ABG PO2 (T) 85.3 mmHg (83-108); ALLEN'S TEST Positive; FCOHb 0.3 % (0.5-1.5); FMetHb 0.1 % (0.3-1.12); FO2Hb 95.9 % (94-100); MINUTE VOLUME 7 L/min; PATIENT TEMPERATURE 36.7; PEEP 5 cm H2O; RESPIRATORY RATE 12 b/min; RESPIRATORY RATE (OBSERVED) 17 b/min; TIDAL VOLUME 350 mL; TOTAL HEMOGLOBIN 9.2 G/dl (12.0-16.0)
[2019-10-02 04:03] LABS: ALANINE AMINOTRANSFERASE 29 U/L (12-78); ALBUMIN 1.8 G/DL (3.4-5.0); ALBUMIN/GLOBULIN RATIO 0.4 (1.1-1.5); ALKALINE PHOSPHATASE 102 IU/L (46-116); ANION GAP 12 (8-16); ASPARTATE AMINO TRANSFERASE 41 U/L (10-37); BILIRUBIN,TOTAL 0.8 MG/DL (0.1-1.0); BLOOD UREA NITROGEN 97 MG/DL (7-18); BUN/CREATININE RATIO 36.1 (6.6-38.0); CALCIUM 8.6 MG/DL (8.5-10.1); CHLORIDE 108 MMOL/L (99-107); CREATININE 2.69 MG/DL (0.40-0.90); GLUCOSE 109 MG/DL (70-104); MAGNESIUM 1.9 MG/DL (1.5-2.4); POTASSIUM 3.4 MMOL/L (3.5-5.1); SODIUM 148 MMOL/L (135-145); TOTAL CARBON DIOXIDE 27.8 MMOL/L (24-32); eGFR 17 ML/MIN
--- NOTE | 2019-10-02 06:30 | NUR ---
Patient in room ICU 2046. I have received report from Carol Diallo RN and had the opportunity to ask questions and assume patient care. Addendum: 10/02/19 at 0630 by Umu Jessica RN Amended: Links added.
[2019-10-02 06:43] LABS: PLATELET ESTIMATE NORMAL
[2019-10-02 06:44] LABS: ANISOCYTOSIS 2+; POIKILOCYTOSIS FEW; POLYCHROMASIA 1+
[2019-10-02] MEDS: Levetiracetam-NS 500mg/100ml 100 ML IV SCH (07:16)
[2019-10-02] MEDS: lactobacillus rhamnosus 10,000 MMU CELLS/CAPSULE OGT SCH (07:16)
[2019-10-02] MEDS: furosemide 40mg/4ml inj IV SCH (07:16)
[2019-10-02] MEDS: famotidine 10mg tablet OGT SCH (07:17)
[2019-10-02] MEDS: NYSTATIN CREAM - 30GM TUBE TP SCH (07:20)
[2019-10-02] MEDS: K, MAG and/or Phos replacement - Verify level? MC SCH (07:27)
[2019-10-02] MEDS: potassium Cl 20 mEq SR tablet OGT PRN ×2 (07:27→11:46)
--- NOTE | 2019-10-02 09:27 | NUR ---
Dr. Potter in to see patient.
[2019-10-02] MEDS ORDERED: heparin, porcine 5000 units/ml vial SQ SCH (09:40)
[2019-10-02] MEDS: LORazepam 2 mg/ml vial IV PRN ×2 (10:05→14:37)
--- NOTE | 2019-10-02 10:29 | NUR ---
Jie (dtr) called and told RN that "they" have decided to "remove life support" from patient. RN alerted Dr. Potter re. Jie's phone call. Dr. Potter spoke with Jie on the phone and listened to her wishes regarding making pt. a DNR. Dr. Potter told Jie to come to the hospital with her family including Lee, LUIS A, and see patient in person to make that decision. Jie and family to be here around 1200 today.
--- NOTE | 2019-10-02 11:21 | NUR ---
Reassessment: Pt remains intubated tolerating TF at goal. LBM 10/02. Pending trach/PEG tomorrow per MD note. Pending neurologist input s/p EEG per MD. Na 148 w/ water flushes held per MD request. Will monitor for PEG placement and nutrition support tolerance. Recommendations: 1) Continuous OGTF per MD; using Vital AF at 70mL/hr goal; to provide 1680 ml fluid, 1361ml free water, 2016kcals, and 126g protein. 2) water flush 200ml Q4 3) Prealbumin q /; daily weights 4) monitor PEG placement for nutrition delivery Addendum: 10/02/19 at [address]1 [address] Amended: Links added.
[2019-10-02] MEDS: normal saline 1000ml 1,000 ML IV SCH (11:55)
--- NOTE | 2019-10-02 13:04 | NUR ---
Daughter Jie and son Lee at bedside. RN told them to let her know when they are ready to talk with Dr. Potter about comfort care/DNR status.
[2019-10-02] MEDS ORDERED: morphine 4 MG/ML inj SYRINge IV PRN (14:30)
--- NOTE | 2019-10-02 14:54 | NUR ---
Pt.'s code status changed to DNR/Comfort care. Pt. extubated at 1450.
--- NOTE | 2019-10-02 14:55 | NUR ---
10/02 1450 EXTUBATED PT TO COMFORT CARE. FAMILY AT BEDSIDE. NO COMPLICATIONS Addendum: 10/02/19 at 1456 by [address]ia [address] RT Amended: Links added.
--- NOTE | 2019-10-02 17:00 | NUR ---
Pt. . Family at bedside. Dr. Potter notified. Donor network notified.
--- NOTE | 2019-10-02 17:17 | NUR ---
RN IS TO DOCUMENT YES TO ALL APPLICABLE AREAS Pronouncement of : 1. Time Physician Notified: Dr. Nguyen 2. Date of : 10/02/2019 3. Time of : 1700 4. DNR/Withdraw life support documented:y 5. Monitor strip has been placed on chart:y 6. Assessment process is of one-minute duration and includes following criteria: a) Patient is unresponsive to all stimuli: y b) Pupils fixed and non-reactive:y c) Auscultation of precordium reveals absence of heart tones:y d) Auscultation of lungs reveals absence of breath sounds:y e) Absence of blood pressure / all vital signs:y f) QRS complexes are not present on monitor / EKG strip:y g) Pacer spikes without capture:y 4. Comments:
--- NOTE | 2019-10-02 18:05 | NUR ---
Called Kenneth. Pt. to be picked up soon.
[2019-10-02] MEDS ORDERED: diatr meglu/diatrizoate 30ml oral sol.-(3 dose) bottle NG ONE (22:00)
== END 2019-10-02 19:19 | disposition expired | DRG 207 ==
LOC: ER 18:02 → ED HOLD 20:30 → CICU 2S 21:07 → ICU 2S 09-21 16:25
PROVIDERS: ADMIT Internal Medicine Critical Care Medicine; ATTEND Internal Medicine Critical Care Medicine
PROC: 5A1955Z Respiratory Ventilation, Greater than 96 Consecutive Hours (ICD-10-PCS; principal; 2019-09-18)
PROC: 0HQ0XZZ Repair Scalp Skin, External Approach (ICD-10-PCS; 2019-09-18)
PROC: 05HM33Z Insertion of Infusion Device into Right Internal Jugular Vein, Percutaneous Approach (ICD-10-PCS; 2019-09-18)
PROC: 0B21XEZ Change Endotracheal Airway in Trachea, External Approach (ICD-10-PCS; 2019-09-20)
PROC: 4A10X4Z Monitoring of Central Nervous Electrical Activity, External Approach (ICD-10-PCS; 2019-09-21)
PROC: 4A10X4Z Monitoring of Central Nervous Electrical Activity, External Approach (ICD-10-PCS; 2019-09-28)
PROC: C0101ZZ Planar Nuclear Medicine Imaging of Brain using Technetium 99m (Tc-99m) (ICD-10-PCS; 2019-09-29)
PROC: 4A10X4Z Monitoring of Central Nervous Electrical Activity, External Approach (ICD-10-PCS; 2019-09-30)
DX: J96.01 Acute respiratory failure with hypoxia (principal); J69.0 Pneumonitis due to inhalation of food and vomit; I13.0 Hypertensive heart and chronic kidney disease with heart failure and stage 1 through stage 4 chronic kidney disease, or unspecified chronic kidney disease; N17.9 Acute kidney failure, unspecified; G93.1 Anoxic brain damage, not elsewhere classified; I46.9 Cardiac arrest, cause unspecified; I50.9 Heart failure, unspecified; E87.5 Hyperkalemia; S01.91XA Laceration without foreign body of unspecified part of head, initial encounter; N18.3 Chronic kidney disease, stage 3 (moderate); E11.22 Type 2 diabetes mellitus with diabetic chronic kidney disease; E78.00 Pure hypercholesterolemia, unspecified; G40.901 Epilepsy, unspecified, not intractable, with status epilepticus; W18.39XA Other fall on same level, initial encounter; K21.9 Gastro-esophageal reflux disease without esophagitis; I48.91 Unspecified atrial fibrillation; J43.9 Emphysema, unspecified; R68.0 Hypothermia, not associated with low environmental temperature; Z51.5 Encounter for palliative care; Z80.3 Family history of malignant neoplasm of breast; Z80.8 Family history of malignant neoplasm of other organs or systems; Z90.710 Acquired absence of both cervix and uterus; Z28.21 Immunization not carried out because of patient refusal; Z88.8 Allergy status to other drugs, medicaments and biological substances; Z88.2 Allergy status to sulfonamides; Y93.89 Activity, other specified; Y92.89 Other specified places as the place of occurrence of the external cause; Y99.8 Other external cause status; Z95.0 Presence of cardiac pacemaker
CPT/HCPCS: 12001; 36415; 36556; 36600; 70450; 71045; 72125; 74176; 78601; 80048; 80053; 80202; 81001; 82550; 82553; 82800; 82803; 82810; 82948; 83036; 83605; 83735; 83880; 84100; 84132; 84134; 84145; 84484; 85018; 85025; 85610; 85730; 87040; 87070; 87077; 87081; 87088; 93005; 93306; 94002; 94003; 94640; 94760; 95816; 96365; 96375; 99291; A9521; C9113; G0378; J0610; J0696; J1250; J1644; J1815; J1940; J1953; J2060; J2250; J2270; J2405; J2543; J3010; J3370; J3480; J3490; J7050; Q2037